=== PATIENT | female | born 1935 | race Caucasian/White ===

== ENCOUNTER 2018-02-13 19:17 | Inpatient (IN) | payer OTHER ==
[~2018-02-13] VITALS: Ht 152.4 cm; Wt 44.9 kg
--- OUTSIDE RECORDS SUMMARY | 2018-02-13 19:20 | XMS REPORT | Clinical Summary ---
Author Author [facility]ip [facility] Organization [facility] Address Unknown Phone Unavailable Care Team Providers Care Grease Worker Name Role Phone Asked, Pcp PCP Unavailable Allergies Active Allergy Reactions Severity Noted Date Comments Codeine Rash Low 05/30/2017 Current Medications Hospital, Clinic, or Ordered Dose Route Frequency Start End Date Status Other Facility Date Administered Medication ciprofloxacin-dexamethaso 4 drop RIGHT EAR BID 05/30/20 06/06/20 Ended ne (CIPRODEX) otic 17 17 suspension 4 dropIndications: Chronic diffuse otitis externa of both ears Active Problems Problem Noted Date Chronic diffuse otitis externa of both ears 05/30/2017 Encounters Date Type Specialty Care Team Description 05/30/2017 Office Visit Otolaryngology Eleazar Luciano MD Chronic diffuse otitis externa of both ears (Primary Dx) after 02/12/2017 Social History Tobacco Use Types Packs/Day Years Used Date Never Smoker Alcohol Use Drinks/Week oz/Week Comments No Sex Assigned at Date Recorded Not on file Last Filed Vital Signs Vital Sign Reading Time Taken Blood Pressure - - Pulse - - Temperature - - Respiratory Rate - - Oxygen Saturation - - Inhaled Oxygen - - Concentration Weight 43.5 kg (96 lb) 05/30/2017 10:06 AM CDT Height 152.4 cm (5') 05/30/2017 10:06 AM CDT Body Mass Index 18.75 05/30/2017 10:06 AM CDT Plan of Treatment Health Maintenance Due Date Last Done Comments ZOSTER VACCINE 1995 PNEUMOCOCCAL 2000 POLYSACCHARIDE VACCINE AGE 65 AND OVER PNEUMOCOCCAL-13 2000 INFLUENZA VACCINE 06/25/2017 Results Not on fileafter 02/12/2017 Insurance Payer Benefit Subscriber ID Type Phone Address Plan / Group TEXAN[employer]US TEXAN[employer]US xxxxxxxxx O [facility]
[2018-02-13 20:01] LABS: BASOPHILS % 0.5 % (0.0-1.0); EOSINOPHILS # (AUTO) 0.1 (0.0-0.4); EOSINOPHILS % 1.4 % (0.0-6.0); LYMPHOCYTES # (AUTO) 1.8 (1.0-3.2); LYMPHOCYTES % 29.5 % (18.0-39.1); MEAN CORPUSCULAR HEMOGLOBIN 17.2 pg (28-32); MEAN CORPUSCULAR HGB CONC 27.3 g/dL (31-35); MEAN CORPUSCULAR VOLUME 62.9 fL (81-99); MONOCYTES # (AUTO) 0.6 (0.2-0.8); MONOCYTES % 9.8 % (4.4-11.3); NEUTROPHILS # (AUTO) 3.6 (2.1-6.9); NEUTROPHILS % 58.5 % (38.7-80.0); PLATELET COUNT 436 x10e3/uL (140-360); RED BLOOD COUNT 3.26 x10e6/uL (3.6-5.1); RED CELL DISTRIBUTION WIDTH 20.6 % (11.7-14.4)
[2018-02-13 20:04] LABS: HEMATOCRIT 20.5 % (34.2-44.1); HEMOGLOBIN 5.6 g/dL (12.0-16.0)
[2018-02-13] MEDS ORDERED: PANTOPRAZOLE 40 MG 10ML VIAL IV STA (20:05)
[2018-02-13 20:07] LABS: INR 1.11; PARTIAL THROMBOPLASTIN TIME 27.2 seconds (23.8-35.5); PROTHROMBIN TIME 13.5 seconds (11.9-14.5)
[2018-02-13] MEDS ORDERED: SODIUM CHLORIDE 0.9% 250ML 250 ML IV ONE (20:15)
[2018-02-13 20:21] LABS: ALANINE AMINOTRANSFERASE 7 IU/L (0-55); ALBUMIN 3.4 g/dL (3.5-5.0); ALBUMIN/GLOBULIN RATIO 1.1 (0.8-2.0); ALKALINE PHOSPHATASE 64 IU/L (40-150); ANION GAP 12.1 mmol/L (8-16); BLOOD UREA NITROGEN 18 mg/dL (7-26); BUN/CREATININE RATIO 27 (6-25); CALCIUM 9.1 mg/dL (8.4-10.2); CARBON DIOXIDE 26 mmol/L (22-29); CHLORIDE 107 mmol/L (98-107); CREATINE KINASE 60 IU/L (29-168); CREATININE, SERUM 0.66 mg/dL (0.57-1.11); EST GLOMERULAR FILTRATION RATE > 60 ML/MIN (60-); GLUCOSE 118 mg/dL (74-118); POTASSIUM 4.1 mmol/L (3.5-5.1); SODIUM 141 mmol/L (136-145)
[2018-02-13 20:53] LABS: BILIRUBIN,URINE NEGATIVE (NEGATIVE); COLOR,URINE YELLOW (YELLOW); KETONES,URINE NEGATIVE (NEGATIVE); LEUKOCYTE ESTERASE ,URINE 2+ (NEGATIVE); NITRITE,URINE NEGATIVE (NEGATIVE); PROTEIN,URINE DIPSTICK NEGATIVE (NEGATIVE); URINE UROBILINOGEN 1 mg/dL (0.2 - 1)
[2018-02-13 20:56] LABS: CLARITY,URINE SL CLOUDY (CLEAR)
[2018-02-13 21:10] LABS: BACTERIA,URINE MODERATE /HPF; EPITHELIAL CELLS,URINE MANY /LPF
--- NOTE | 2018-02-13 22:00 | Diagnostic Imaging Report ---
EXAM: CHEST 2 VIEWS, PA and lateral INDICATION: Anemia, constipation COMPARISON: None FINDINGS: LINES/TUBES: None LUNGS: No consolidations or edema. Emphysematous changes. PLEURA: No effusions or pneumothorax. HEART AND MEDIASTINUM: Normal size and contour. BONES AND SOFT TISSUES: No acute findings. Surgical clips right upper quadrant of the abdomen. IMPRESSION: No acute thoracic abnormality. Signed by: Dr. Claritza Gatica M.D. on 02/13/2018 9:57 PM
--- NOTE | 2018-02-13 22:01 | Diagnostic Imaging Report ---
EXAM: ABDOMEN COMP INCL UPR or DECUB, supine and erect INDICATION: Anemia, constipation COMPARISON: None FINDINGS: LINES/TUBES: None BOWEL PATTERN: No evidence for obstruction. SOFT TISSUES: Surgical clips right upper quadrant of the abdomen. Surgical clips project over the pelvis. Phleboliths in the pelvis. LUNG BASES: Not included BONES: No acute findings. IMPRESSION: Moderate to large amount of retained stool. No evidence of obstruction. Signed by: Dr. Claritza Gatica M.D. on 02/13/2018 9:58 PM
[2018-02-13] MEDS: SODIUM CHLORIDE 0.9% 1000ML 1,000 ML IV SCH (22:43)
--- OUTSIDE RECORDS SUMMARY | 2018-02-13 23:04 | XMS REPORT | Clinical Summary ---
Author Author Sandip [facility] Organization [employer] Address Unknown Phone Unavailable Care Team Providers Care Stationary Plant Operators Name Role Phone Asked, Pcp PCP Unavailable [...] Plan / Group [employer] TEX[employer] xxxxxxxxx [facility]
--- OUTSIDE RECORDS SUMMARY | 2018-02-13 23:04 | XMS REPORT ---
[facility] Address Unknown Phone Unavailable Care Team Providers Care Dental Laboratory Technician Apprentice Name Role Phone HANNAH GALEAS Unavailable Unavailable Problems This patient has no known problems. Allergies, Adverse Reactions, Alerts This patient has no known allergies or adverse reactions. Medications This patient has no known medications. Results Test Description Test Time Test Comments Text Results Atomic Results Result Comments CHEST 2 VIEWS [place] [id number] [place] [address] Patient Name: ALBERT BUSTAMANTE MR #: [id number] : 1935 Age/Sex: 82/F Req #: [id number] Adm Physician: Ordered by: HANNAH GALEAS MD Report #: [id number] Location: ER Room/Bed: Procedure: [id number] DX/CHEST 2 VIEWS Exam Date: Exam Time: REPORT STATUS: Signed EXAM: CHEST 2 VIEWS, PA and lateral INDICATION: Anemia, constipation COMPARISON: None FINDINGS: LINES/TUBES: None LUNGS: No consolidations or edema. Emphysematous changes. PLEURA: No effusions or pneumothorax. HEART AND MEDIASTINUM: Normal size and contour. BONES AND SOFT TISSUES: No acute findings. Surgical clips right upper quadrant of the abdomen. IMPRESSION: No acute thoracic abnormality. Signed by: Dr. Tyrese Dougherty M.D. on 02/13/2018 9:57 PM Dictated By: TYRESE DOUGHERTY MD 56 COPY TO: HANNAH GALEAS MD ABDOMEN COMP INCL UPR or DECUB [place] [address] Patient Name: ALBERT BUSTAMANTE MR #: [id number] : 1935 Age/Sex: 82/F Req #: [id number] Adm Physician: Ordered by: HANNAH GALEAS MD Report #: [id number] Location: ER Room/Bed: Procedure: [id number] DX/ABDOMEN COMP INCL UPR or DECUB Exam Date: Exam Time: REPORT STATUS: Signed EXAM: ABDOMEN COMP INCL UPR or DECUB, supine and erect INDICATION: Anemia, constipation COMPARISON: None FINDINGS: LINES/TUBES: None BOWEL PATTERN: No evidence for obstruction. SOFT TISSUES: Surgical clips right upper quadrant of the abdomen. Surgical clips project over the pelvis. Phleboliths in the pelvis. LUNG BASES: Not included BONES: No acute findings. IMPRESSION: Moderate to large amount of retained stool. No evidence of obstruction. Signed by: Dr. Tyrese Dougherty M.D. on 2017 9:58 PM Dictated By: TYRESE DOUGHERTY MD 57 Transcribed By: HELGA on 02/13/182157 COPY TO: HANNAH GALEAS MD
[2018-02-14] VITALS (9 sets, daily range): BP systolic 133–163; BP diastolic 61–71
[2018-02-14] MEDS ORDERED: PLAVIX75 MG PO (00:49)
[2018-02-14] MEDS ORDERED: ASPIRIN81 MG PO (00:49)
[2018-02-14] MEDS ORDERED: SODIUM CHLORIDE 0.9% 250ML 250 ML ONE ×3 (01:04→09:17)
[2018-02-14] MEDS: ACETAMINOPHEN 325 MG TAB PO PRN (03:06)
[2018-02-14] MEDS: FUROSEMIDE INJ 10 MG/ML 2 ML VIAL IV PRN ×3 (04:58→13:30)
[2018-02-14] MEDS ORDERED: PANTOPRAZOLE 40 MG 10ML VIAL IV SCH (09:00)
[2018-02-14] MEDS ORDERED: PANTOPRAZOLE SO40 MG PO (11:10)
[2018-02-14] MEDS ORDERED: SIMVASTATIN20 MG PO (11:10)
[2018-02-14] MEDS ORDERED: ATENOLOL50 MG PO (11:10)
[2018-02-14] MEDS ORDERED: MAGNESIUM HYDROXIDE 30 ML UDC PO PRN (12:15)
[2018-02-14 12:47] LABS: THYROID STIMULATING HORMONE 1.13 uIU/mL (0.350-4.940)
[2018-02-14 13:00] LABS: FOLATE 16.7 ng/mL (7.0-15.4)
[2018-02-14] MEDS: SENNOSIDES 8.6 MG TAB PO SCH ×2 (13:00→20:24)
--- NOTE | 2018-02-14 13:09 | History and Physical ---
PRIMARY CARE PHYSICIAN: Dr. Fred Phelan. CHIEF COMPLAINT: Severe anemia, increasing shortness of breath. HISTORY OF PRESENT ILLNESS: Patient is an 82-year-old female with history of anemia but no blood transfusion previously. She had a colonoscopy approximately 4 years ago with polyps. The procedure was done by Dr. David Stafford. No previous history of EGD. Patient also had a coronary stent placement in 1998, and she is on Plavix. Otherwise she is stable. She is getting 30 units of blood transfusion at this time. The patient will be pending for further evaluation and treatment. PAST MEDICAL HISTORY: Chronic anemia. Coronary artery disease with previous stent placement in 1998. Hypertension. Hyperlipidemia. Reflux history. PAST SURGICAL HISTORY: Coronary stent. Cholecystectomy. Complete abdominal hysterectomy. SOCIAL HISTORY: Patient does not smoke or use alcohol. She lives with her son. ALLERGIES: CODEINE. MEDICATIONS: Plavix, Protonix, simvastatin, atenolol. PHYSICAL EXAMINATION: VITAL SIGNS: Temperature is 98. Blood pressure 147/67. Pulse rate 75. Respirations 18. GENERAL: The patient is not in acute distress. She is awake. HEENT: Normocephalic. Sclerae anicteric. NECK: Supple grossly. PULMONARY: Clear. CARDIOVASCULAR: Regular rate and rhythm. ABDOMEN: Soft. No distention. EXTREMITIES: No gross cyanosis or edema. NEUROLOGIC: There is no gross focal deficit. LABORATORY: Sodium is 141, potassium 4.1, chloride 107, bicarb 26, BUN 18, creatinine 0.7, glucose 118. WBC 6.2, hemoglobin 5.6, hematocrit 20.5, platelets are 436. INR is 1.1. PT is 13.5. PTT 27.2. AST is 14, ALT 7, total bilirubin is 0.4, alkaline phosphatase 64. IMPRESSION: 1. Acute on chronic anemia, most likely. 2. Constipation. 3. Blood transfusion. 4. History of coronary disease with stent placement back in 1998. PLAN: Blood transfusion is already initiated and is on the 3rd unit. Consultation with Dr. David Stafford. Iron profile, B12, folic acid, fecal for occult blood in the stool. Management of constipation. If no procedure today, the patient may initiate on diet. The patient will need endoscopy done. Job#: [id number] EV
[2018-02-14] MEDS ORDERED: PEG (High)/E-LYTE SOLN 4,000 ML BTL PO ONE (15:30)
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
[2018-02-14 18:15] LABS: BASOPHILS # (AUTO) 0.1 (0.0-0.1); BASOPHILS % 0.7 % (0.0-1.0); EOSINOPHILS # (AUTO) 0.1 (0.0-0.4); EOSINOPHILS % 1.2 % (0.0-6.0); HEMATOCRIT 41.9 % (34.2-44.1); HEMOGLOBIN 13.7 g/dL (12.0-16.0); LYMPHOCYTES # (AUTO) 1.3 (1.0-3.2); LYMPHOCYTES % 17.8 % (18.0-39.1); MEAN CORPUSCULAR HEMOGLOBIN 23.7 pg (28-32); MEAN CORPUSCULAR HGB CONC 32.7 g/dL (31-35); MEAN CORPUSCULAR VOLUME 72.5 fL (81-99); MONOCYTES # (AUTO) 0.6 (0.2-0.8); MONOCYTES % 7.8 % (4.4-11.3); NEUTROPHILS # (AUTO) 5.4 (2.1-6.9); NEUTROPHILS % 72.2 % (38.7-80.0); PLATELET COUNT 390 x10e3/uL (140-360); RED BLOOD COUNT 5.78 x10e6/uL (3.6-5.1); RED CELL DISTRIBUTION WIDTH 26.8 % (11.7-14.4)
[2018-02-14 18:30] LABS: ALANINE AMINOTRANSFERASE 10 IU/L (0-55); ALBUMIN 3.9 g/dL (3.5-5.0); ALBUMIN/GLOBULIN RATIO 1.1 (0.8-2.0); ALKALINE PHOSPHATASE 72 IU/L (40-150); ANION GAP 15.4 mmol/L (8-16); BLOOD UREA NITROGEN 12 mg/dL (7-26); BUN/CREATININE RATIO 16 (6-25); CALCIUM 9.7 mg/dL (8.4-10.2); CARBON DIOXIDE 31 mmol/L (22-29); CHLORIDE 95 mmol/L (98-107); CREATININE, SERUM 0.73 mg/dL (0.57-1.11); EST GLOMERULAR FILTRATION RATE > 60 ML/MIN (60-); GLUCOSE 113 mg/dL (74-118); POTASSIUM 3.4 mmol/L (3.5-5.1); SODIUM 138 mmol/L (136-145)
[2018-02-14] MEDS: SODIUM CHLORIDE 0.9% 1000ML 1,000 ML IV SCH (18:43)
[2018-02-14] MEDS: SIMVASTATIN 20 MG TAB PO SCH (20:24)
[2018-02-15] VITALS (8 sets, daily range): BP systolic 122–182; BP diastolic 56–81
[2018-02-15 06:49] LABS: BASOPHILS % 0.6 % (0.0-1.0); EOSINOPHILS # (AUTO) 0.2 (0.0-0.4); EOSINOPHILS % 2.3 % (0.0-6.0); HEMATOCRIT 40.6 % (34.2-44.1); HEMOGLOBIN 13.1 g/dL (12.0-16.0); LYMPHOCYTES # (AUTO) 1.4 (1.0-3.2); LYMPHOCYTES % 20.9 % (18.0-39.1); MEAN CORPUSCULAR HEMOGLOBIN 23.3 pg (28-32); MEAN CORPUSCULAR HGB CONC 32.3 g/dL (31-35); MEAN CORPUSCULAR VOLUME 72.2 fL (81-99); MONOCYTES # (AUTO) 0.8 (0.2-0.8); MONOCYTES % 11.3 % (4.4-11.3); NEUTROPHILS # (AUTO) 4.4 (2.1-6.9); NEUTROPHILS % 64.5 % (38.7-80.0); PLATELET COUNT 339 x10e3/uL (140-360); RED BLOOD COUNT 5.62 x10e6/uL (3.6-5.1); RED CELL DISTRIBUTION WIDTH 27.1 % (11.7-14.4)
[2018-02-15 07:15] LABS: ANION GAP 12.6 mmol/L (8-16); BLOOD UREA NITROGEN 15 mg/dL (7-26); BUN/CREATININE RATIO 22 (6-25); CALCIUM 9.4 mg/dL (8.4-10.2); CARBON DIOXIDE 28 mmol/L (22-29); CHLORIDE 99 mmol/L (98-107); CREATININE, SERUM 0.69 mg/dL (0.57-1.11); EST GLOMERULAR FILTRATION RATE > 60 ML/MIN (60-); GLUCOSE 104 mg/dL (74-118); POTASSIUM 3.6 mmol/L (3.5-5.1); SODIUM 136 mmol/L (136-145)
[2018-02-15] MEDS: PANTOPRAZOLE SOD 40 MG TABEC PO SCH (08:18)
[2018-02-15] MEDS: ATENOLOL 50 MG TAB PO SCH (08:18)
[2018-02-15 10:21] LABS: ANISOCYTOSIS SLIG; ELLIPTOCYTE, RBC SLIGHT; POIKILOCYTOSIS MODERATE; STOMATOCYTES SLIGHT
[2018-02-15 10:22] LABS: PLATELET ESTIMATE ADEQUATE; PLATELET MORPHOLOGY COMMENT NORMAL; RBC MORPHOLOGY COMMENT ABNORMAL
[2018-02-15] MEDS ORDERED: PEG (High)/E-LYTE SOLN 4,000 ML BTL PO ONE ×2 (11:00→17:00)
[2018-02-15] MEDS: SODIUM CHLORIDE 0.9% 1000ML 1,000 ML IV SCH (14:43)
[2018-02-15] MEDS: SENNOSIDES 8.6 MG TAB PO SCH (20:27)
[2018-02-15] MEDS: SIMVASTATIN 20 MG TAB PO SCH (20:28)
--- NOTE | 2018-02-15 23:15 | Progress Note ---
DATE: February 15, 2018 SUBJECTIVE: Patient is reporting no abdominal pain. She is tolerating clear liquids. REVIEW OF SYSTEMS: GENERAL: No fever or chills. CVS: No chest pain or palpitation. RESPIRATORY: No cough or expectoration. MEDICATIONS: Reviewed JAN. PHYSICAL EXAMINATION: VITAL SIGNS: Temperature 96.4, pulse 58, respiration 18, blood pressure 136/63 to 157/75, oxygen saturation 100% on room air. GENERAL: Elderly frail lady, thin body habitus, low muscle mass. HEENT: Mucous membranes moist. Anicteric sclerae. CVS: S1 and S2 regular. LUNGS: Bilaterally grossly clear. ABDOMEN: Thin, nondistended, nontender. No palpable mass or hernia. Positive bowel sounds. EXTREMITIES: Warm. No leg edema. LABS: Hemoglobin 13.1 from 13.7. WBC 6.88, hematocrit 40.6, platelet count 339,000. Electrolytes normal. Abdominal x-ray on February 13 IMPRESSION: Symptomatic microcytic anemia. Stool is heme occult positive. PLAN: Bowel prep tonight. Continue clear liquid diet. Esophagogastroduodenoscopy and colonoscopy tomorrow. Job#: [id number] DR MATA
[2018-02-16] VITALS (9 sets, daily range): BP systolic 135–158; BP diastolic 59–72
[2018-02-16] MEDS: ATENOLOL 50 MG TAB PO SCH ×2 (09:00→15:46)
[2018-02-16] MEDS: PANTOPRAZOLE SOD 40 MG TABEC PO SCH ×2 (09:00→15:46)
[2018-02-16] MEDS ORDERED: DIATRIZOATE MEGL/DIATRIZOA SOD 30 ML BTL PO ONE (10:35)
[2018-02-16] MEDS: SODIUM CHLORIDE 0.9% 1000ML 1,000 ML IV SCH (10:43)
--- NOTE | 2018-02-16 14:02 | Diagnostic Imaging Report ---
ADDENDUM #1 Addendum: Questionable thickening of the sigmoid junction. Proctitis not excluded. Direct visualization could be obtained as indicated. Signed by: Dr. Harjeet Patino MD on 02/16/2018 2:23 PM ORIGINAL REPORT EXAM: CT Abdomen and Pelvis WITH contrast INDICATION: EGD same day. Abnormal findings. Rule out metastasis. COMPARISON: None. TECHNIQUE: Abdomen and Pelvis was scanned utilizing a multidetector helical scanner after administration of IV contrast. Coronal and sagittal reformations were obtained. IV CONTRAST: 100 mL Isovue-370 COMPLICATIONS: None RADIATION DOSE: Total DLP:155 mGy*cm Estimated effective dose: (DLP x 0.015 x size factor) mSv CTDIvol has been reviewed. It is below the limits set by the Radiation Protocol Committee (RPC). FINDINGS: Abdomen: Lung Bases: Atelectasis present lung bases. Solid Organs: 9 mm cyst anterior left hepatic lobe. Focal fat attenuation along the falciform ligament. Cholecystectomy clips are present. There is a 15 mm nodule in the left adrenal gland with indeterminate Hounsfield units of 71. 20 mm right adrenal lesion present with indeterminate Hounsfield units of 81. Hypodensity right kidney statistically cyst, but too small to definitively characterize. Pancreas unremarkable. Upper GI Tract: Gastric decompression limits evaluation. No small bowel obstructive changes. Vascularity: Moderate aortoiliac vascular calcifications with no aneurysm. Lymph Nodes: No suspicious mesenteric or aortocaval adenopathy. Other: None. Pelvis: Bladder: Unremarkable. Other: Uterus absent. Colon: Areas of decompression limits evaluation. Questionable wall thickening in the rectal junction. Bones: No acute findings. IMPRESSION: 1. Bilateral indeterminate adrenal lesions. Adrenal mass protocol CT or MRI recommended. 2. If concern is present for metastatic disease in the chest, dedicated CT chest to be recommended. 3. Colonic evaluation limited by decompression. Signed by: Dr. Harjeet Patino MD on 02/16/2018 1:58 PM
[2018-02-16] MEDS ORDERED: SODIUM CHLORIDE 0.9% 50ML 50 ML ONE (14:21)
[2018-02-16] MEDS ORDERED: IOPAMIDOL 370 MG/ML 200 ML INFUS..BTL INJ ONE (14:23)
[2018-02-16] MEDS ORDERED: LIDOCAINE HCL 2% LOCAL INJ 5 ML SDV VIAL INJ ONE (14:39)
[2018-02-16] MEDS ORDERED: PROPOFOL IV EMULSION 10 MG/ML 20 ML VIAL ONE (14:39)
[2018-02-16] MEDS: SIMVASTATIN 20 MG TAB PO SCH (20:53)
[2018-02-16] MEDS: SENNOSIDES 8.6 MG TAB PO SCH (20:53)
[2018-02-17] VITALS (29 sets, daily range): BP systolic 117–179; BP diastolic 55–87
--- NOTE | 2018-02-17 00:17 | Consultation ---
DATE OF CONSULTATION: February 16, 2018 CHIEF COMPLAINT: Colonic tumor. HISTORY OF PRESENT ILLNESS: The patient is 82-year-old female admitted for history of significant anemia and chronic constipation. The patient was found on colonoscopy to have a tumor near obstructing in the proximal transverse colon. She denies history of melena or vomiting. PAST MEDICAL HISTORY: Significant for coronary artery disease, status post stent placement many years ago. She also has hypertension, GERD, hyperlipidemia, anxiety, and glaucoma. SURGICAL HISTORY: Positive for hysterectomy, cholecystectomy, and coronary artery stenting. ALLERGIES: PATIENT IS ALLERGIC TO CODEINE. SOCIAL HABITS: No history of smoking or alcohol use. REVIEW OF SYSTEMS: No current chest pain or shortness of breath or cough. PHYSICAL EXAMINATION: VITAL SIGNS: Stable. She is afebrile. GENERAL: Patient is awake, alert, in no apparent distress. HEENT: Sclerae nonicteric. NECK: Supple. LUNGS: Clear. HEART: Regular rate and rhythm. No murmurs. ABDOMEN: Soft. There is no focal tenderness or mass. EXTREMITIES: Without cyanosis or edema. LABORATORY DATA: White cell count is 6.8, hemoglobin of 13. Creatinine of 0.6. Abdominal x-ray showed constipation. ASSESSMENT: Large colonic tumor with severe anemia. Patient has been adequately resuscitated. PLAN: Laparoscopic-assisted right colectomy under anesthesia. Attendant risks discussed with patient and family. Thank you. Job#: [id number]
[2018-02-17 07:10] LABS: BASOPHILS # (AUTO) 0.1 (0.0-0.1); BASOPHILS % 0.8 % (0.0-1.0); EOSINOPHILS # (AUTO) 0.1 (0.0-0.4); EOSINOPHILS % 1.3 % (0.0-6.0); HEMATOCRIT 38.3 % (34.2-44.1); HEMOGLOBIN 12.1 g/dL (12.0-16.0); LYMPHOCYTES # (AUTO) 1.4 (1.0-3.2); LYMPHOCYTES % 18.6 % (18.0-39.1); MEAN CORPUSCULAR HEMOGLOBIN 23.4 pg (28-32); MEAN CORPUSCULAR HGB CONC 31.6 g/dL (31-35); MEAN CORPUSCULAR VOLUME 74.2 fL (81-99); MONOCYTES # (AUTO) 0.6 (0.2-0.8); MONOCYTES % 7.4 % (4.4-11.3); NEUTROPHILS # (AUTO) 5.5 (2.1-6.9); NEUTROPHILS % 70.6 % (38.7-80.0); PLATELET COUNT 295 x10e3/uL (140-360); RED BLOOD COUNT 5.16 x10e6/uL (3.6-5.1); RED CELL DISTRIBUTION WIDTH 27.9 % (11.7-14.4)
[2018-02-17 07:24] LABS: INR 1.14; PARTIAL THROMBOPLASTIN TIME 28.3 seconds (23.8-35.5); PROTHROMBIN TIME 13.7 seconds (11.9-14.5)
[2018-02-17 07:47] LABS: ALANINE AMINOTRANSFERASE 8 IU/L (0-55); ALBUMIN 2.9 g/dL (3.5-5.0); ALBUMIN/GLOBULIN RATIO 1.1 (0.8-2.0); ALKALINE PHOSPHATASE 62 IU/L (40-150); ANION GAP 11.8 mmol/L (8-16); BLOOD UREA NITROGEN 8 mg/dL (7-26); BUN/CREATININE RATIO 13 (6-25); CALCIUM 8.7 mg/dL (8.4-10.2); CARBON DIOXIDE 25 mmol/L (22-29); CHLORIDE 108 mmol/L (98-107); CREATININE, SERUM 0.63 mg/dL (0.57-1.11); EST GLOMERULAR FILTRATION RATE > 60 ML/MIN (60-); GLUCOSE 87 mg/dL (74-118); POTASSIUM 3.8 mmol/L (3.5-5.1); SODIUM 141 mmol/L (136-145)
[2018-02-17 08:37] LABS: HYPOCHROMASIA SLIGHT; PLATELET ESTIMATE ADEQUATE; PLATELET MORPHOLOGY COMMENT FEW LARGE; RBC MORPHOLOGY COMMENT ABNORMAL
[2018-02-17 08:38] LABS: ANISOCYTOSIS SLIG; POIKILOCYTOSIS SLIGHT
[2018-02-17] MEDS: ATENOLOL 50 MG TAB PO SCH (08:40)
[2018-02-17] MEDS: PANTOPRAZOLE SOD 40 MG TABEC PO SCH (08:44)
[2018-02-17] MEDS ORDERED: BUPIVACAINE 0.5%/EPI 30 ML SDV INJ ONE (11:44)
[2018-02-17] MEDS ORDERED: ACETAMINOPHEN 1000 MG/100 ML 100 ML IV ONE (12:27)
[2018-02-17] MEDS ORDERED: MORPHINE SULFATE 4 MG/ML SYR IV PRN (13:15)
--- NOTE | 2018-02-17 14:17 | Operative Report ---
DATE OF PROCEDURE: February 17, 2018 PREOPERATIVE DIAGNOSIS: Right colonic tumor. POSTOPERATIVE DIAGNOSIS: Right transverse colonic tumor. OPERATIVE PROCEDURE: Right colectomy. ANESTHESIA: General. INDICATIONS: The patient is an 82-year-old female with history of anemia. Colonoscopy revealed a tumor in the proximal transverse colon. CT scan has shown no evidence of distal metastases. Patient has consented for right colectomy under anesthesia with all attendant risks discussed. DESCRIPTION OF PROCEDURE: Patient was brought to the OR intubated. Abdomen was prepped with alcohol and draped in a sterile fashion. Upper midline incision was made extending below the umbilicus. The linea alba was entered. Adhesions from prior surgery were noted, and these were taken down with the Bovie. The right proximal transverse colon tumor was identified by the tattoo as well as palpation. We proceeded to mobilize the right colon by dividing the white line of Toldt and opened the gastrocolic ligament partially. The terminal ileum was also mobilized from the retroperitoneal attachment. We then proceeded to use a BRY stapler and divided the transverse colon just proximal to its mid point. Terminal ileum was transected just adjacent to the ileocecal valve. The corresponding mesentery to the right colon was then taken near the roots of the mesentery, suture ligating the vascular mesentery with 2-0 silk ligature. The ileocolic vessel was similarly treated. Some enlarged nodes were noted in the mesentery, which was included in the specimen. The operative field was irrigated. We then proceeded to stapled anastomosis using an Endo-BRY stapler white load and TL60 stapler. The mesenteric defect was also closed with running 3-0 silk stitch. Operative field was irrigated and hemostasis achieved. Abdomen was closed by approximating the linea alba with running #0 PDS and skin with vadim. Patient was extubated and transported to the recovery room in guarded condition. Estimated blood loss 50 mL. Job#: [id number]
--- NOTE | 2018-02-17 16:04 | Consultation ---
DATE OF CONSULTATION: February 17, 2018 CHIEF COMPLAINT: The patient is an 82-year-old with surgery for transection of colon tumor. HISTORY OF PRESENT ILLNESS: The patient is an 82-year-old who was noted to have a tumor obstructing the proximal portion of the transverse colon. The patient subsequently underwent surgery today for resection of the tumor. In the post anesthesia care unit, the patient was noted to have sinus bradycardia. The patient is already extubated with no chest pain and minimal shortness of breath. PAST MEDICAL HISTORY: History is significant for: 1. Coronary artery disease. 2. Previous stent placement in the coronary artery. 3. Hypertension. 4. Gastroesophageal reflux. HOME MEDICATIONS: Atenolol, Plavix, simvastatin, Protonix. SOCIAL HISTORY: The patient does not drink and does not smoke. FAMILY HISTORY: No known family history of coronary artery disease. PHYSICAL EXAMINATION GENERAL: The patient is an elderly female in no obvious distress. VITAL SIGNS: Temperature 97.6, pulse 65, blood pressure 117/56. HEENT: The patient's cranium was normocephalic, atraumatic. Extraocular muscles were intact. Sclerae anicteric. Pupils equal, round and reactive to light. There is no pallor or cyanosis of the oral mucosa. There is no erythema or edema of the throat. NECK: Supple. There is no jugular venous distention. There are no carotid bruits. CHEST: Clear to auscultation and percussion. CARDIAC: Demonstrates a normal S1 and S2 with a short 2/6 systolic murmur. ABDOMEN: Good bowel sounds. No tenderness, no masses. The patient did have recent surgery. EXTREMITIES: There is no clubbing and no cyanosis and no edema. NEUROLOGIC: The patient is moving all of her extremities. The patient's EKG demonstrated sinus bradycardia with no acute changes. IMPRESSION: The patient is an 82-year-old with recent transection of a tumor in the transverse colon with noted some sinus bradycardia. The patient has had no evidence of active cardiac ischemia at this time with no chest pain and no shortness of breath. The patient will need to be monitored on telemetry. Job#: [id number] cc:RADHA DELGADO MD
[2018-02-17] MEDS: MORPHINE SULFATE 2 MG/ML SYR IV PRN (17:25)
[2018-02-17] MEDS: SODIUM CHLORIDE 0.9% 1000ML 1,000 ML IV SCH ×2 (18:00→19:52)
[2018-02-17] MEDS ORDERED: ROCURONIUM BROMIDE 10 MG/ML 5ML VIAL ONE (18:10)
[2018-02-17] MEDS ORDERED: CEFOXITIN SOD 1 GM VIAL ONE (18:10)
[2018-02-17] MEDS ORDERED: DEXAMETHASONE SOD PHOS INJ 4 MG/ML VIAL ONE (18:10)
[2018-02-17] MEDS ORDERED: ONDANSETRON HCL INJ 2 MG/ML VIAL ONE (18:10)
[2018-02-17] MEDS ORDERED: SEVOFLURANE INHAL SOLN 250 ML PEN BTL ONE (18:10)
[2018-02-17] MEDS ORDERED: PROPOFOL IV EMULSION 10 MG/ML 20 ML VIAL ONE (18:10)
[2018-02-17] MEDS ORDERED: LIDOCAINE HCL 2% LOCAL INJ 5 ML SDV VIAL INJ ONE ×2 (18:10)
[2018-02-17] MEDS ORDERED: PROPOFOL IV EMULSION 10 MG/ML 50 ML VIAL ONE (18:10)
[2018-02-17] MEDS ORDERED: FENTANYL CITRATE/PF 100MCG/2 ML INJ ONE (18:22)
[2018-02-17] MEDS ORDERED: MORPHINE SULFATE INJ 10 MG/ML ONE (18:22)
[2018-02-17] MEDS: SENNOSIDES 8.6 MG TAB PO SCH (21:18)
[2018-02-18] VITALS (46 sets, daily range): BP systolic 91–135; BP diastolic 42–66
[2018-02-18] MEDS: MORPHINE SULFATE 2 MG/ML SYR IV PRN ×4 (01:03→21:19)
[2018-02-18] MEDS: SODIUM CHLORIDE 0.9% 1000ML 1,000 ML IV SCH ×2 (03:59→14:55)
[2018-02-18 06:16] LABS: BASOPHILS % 0.2 % (0.0-1.0); EOSINOPHILS % 0.1 % (0.0-6.0); HEMATOCRIT 38.6 % (34.2-44.1); HEMOGLOBIN 11.7 g/dL (12.0-16.0); MEAN CORPUSCULAR HEMOGLOBIN 23.5 pg (28-32); MEAN CORPUSCULAR HGB CONC 30.3 g/dL (31-35); MEAN CORPUSCULAR VOLUME 77.5 fL (81-99); MONOCYTES # (AUTO) 0.8 (0.2-0.8); MONOCYTES % 4.9 % (4.4-11.3); NEUTROPHILS # (AUTO) 14.4 (2.1-6.9); NEUTROPHILS % 88.6 % (38.7-80.0); PLATELET COUNT 290 x10e3/uL (140-360); RED BLOOD COUNT 4.98 x10e6/uL (3.6-5.1); RED CELL DISTRIBUTION WIDTH 28.2 % (11.7-14.4)
[2018-02-18 06:43] LABS: ANION GAP 18.7 mmol/L (8-16); BLOOD UREA NITROGEN 11 mg/dL (7-26); BUN/CREATININE RATIO 18 (6-25); CALCIUM 8.3 mg/dL (8.4-10.2); CARBON DIOXIDE 15 mmol/L (22-29); CHLORIDE 111 mmol/L (98-107); CREATININE, SERUM 0.62 mg/dL (0.57-1.11); EST GLOMERULAR FILTRATION RATE > 60 ML/MIN (60-); POTASSIUM 3.7 mmol/L (3.5-5.1); SODIUM 141 mmol/L (136-145)
[2018-02-18 06:49] LABS: GLUCOSE 54 mg/dL (74-118)
[2018-02-18 07:35] LABS: ANISOCYTOSIS SLIGHT; HYPOCHROMASIA SLIGHT; PLATELET ESTIMATE ADEQUATE; PLATELET MORPHOLOGY COMMENT NORMAL; RBC MORPHOLOGY COMMENT ABNORMAL
[2018-02-18] MEDS: ATENOLOL 50 MG TAB PO SCH (08:30)
[2018-02-18] MEDS: PANTOPRAZOLE SOD 40 MG TABEC PO SCH (11:26)
--- NOTE | 2018-02-18 19:50 | Progress Note ---
DATE: February 18, 2018 SUBJECTIVE: The patient reports mild incisional pain. She underwent laparoscopic cholecystectomy on Saturday. She has been allowed clear liquids which she is tolerating very well. She is passing flatus. She has not had any bowel movement. REVIEW OF SYSTEMS: GENERAL: No fever or chills. CVS: No chest pain or palpitations. RESPIRATORY: No cough or expectoration. MEDICATIONS: Reviewed as per JAN. OBJECTIVE VITAL SIGNS: Temperature 99.1, pulse 80, respirations 19, blood pressure 135/66, oxygen saturation 96% on room air. GENERAL: Frail, thin body habitus, low muscle mass. Not in any acute distress. HEENT: Moist mucous membranes. CVS: S1 and S2 regular. LUNGS: Bilaterally grossly clear. ABDOMEN: Soft. Surgical dressing, incisional tenderness. No rebound, rigidity or guarding, positive bowel sounds. EXTREMITIES: Warm. No leg edema. LABORATORY DATA: WBC has gone up to 16.29 from 7.73. Hemoglobin 11.7, hematocrit 38.6. MCV 77.5 and platelet count 290,000. Sodium 141, potassium 3.7, chloride 111, bicarb 15, BUN 11, creatinine 0.62. Stool occult blood heme positive. IMPRESSION: Right colon cancer, status post laparoscopic hemicolectomy, postoperative day #1. Surgical pathology as well as colon mass biopsy performed on colonoscopy still pending. PLAN: Postop care as per surgery. CT scan with IV contrast revealed no distant metastasis, indeterminate adrenal lesions. Recommend oncology consult as well. Will wait for biopsy results. Job#: [id number]
[2018-02-18] MEDS: NIFEDIPINE CR 30 MG TAB PO SCH (20:30)
[2018-02-18] MEDS: SENNOSIDES 8.6 MG TAB PO SCH (20:30)
[2018-02-19] MEDS: SODIUM CHLORIDE 0.9% 1000ML 1,000 ML IV SCH ×2 (01:52→09:38)
[2018-02-19] MEDS: ACETAMINOPHEN 325 MG TAB PO PRN (02:53)
[2018-02-19] MEDS: MORPHINE SULFATE 2 MG/ML SYR IV PRN ×3 (04:00→22:50)
[2018-02-19] MEDS: ONDANSETRON HCL INJ 2 MG/ML VIAL IV PRN (04:00)
[2018-02-19 08:00] VITALS: BP 105/53
[2018-02-19 08:01] VITALS: BP 105/53
[2018-02-19] MEDS: PANTOPRAZOLE SOD 40 MG TABEC PO SCH (09:00)
[2018-02-19] MEDS: NIFEDIPINE CR 30 MG TAB PO SCH ×2 (09:00→17:00)
[2018-02-19] MEDS: ATENOLOL 50 MG TAB PO SCH (09:00)
[2018-02-19 11:44] VITALS: BP 104/52
[2018-02-19 16:05] VITALS: BP 113/60
[2018-02-19] MEDS: SENNOSIDES 8.6 MG TAB PO SCH (20:20)
--- NOTE | 2018-02-19 20:30 | Progress Note ---
DATE: February 19, 2018 SUBJECTIVE: The patient reports mild incisional pain. She is tolerating liquids. She is asking when she can eat solid food. She is passing flatus. She has not had any bowel movement. REVIEW OF SYSTEMS: GENERAL: No fever or chills. CVS: No chest pain or palpitations. RESPIRATORY: No cough or expectoration. MEDICATIONS: As per MAR, reviewed. OBJECTIVE VITAL SIGNS: Temperature 98.4, pulse 75, respirations 19, blood pressure 113/60, oxygen saturation 98% on room air. GENERAL: Not in any acute distress and sitting comfortably on the bedside couch. Thin body habitus with low muscle mass. HEENT: Moist mucous membranes. Anicteric sclerae. CVS: S1 and S2 regular. LUNGS: Bilaterally grossly clear. ABDOMEN: Soft. Nondistended. Incisional tenderness on deep palpation without rebound, rigidity or guarding. Positive bowel sounds. EXTREMITIES: Warm. No leg edema. LABORATORY DATA: None done today. 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 Gastric biopsy was negative for any H. pylori infection. PLAN: Postop care for postop surgery. Advancement of the diet to solid foot, also as per surgery. Will wait for surgical pathology. Recommend oncology should also be on board. This I had discussed with Dr. Santos. Job#: [id number]
[2018-02-19 21:05] VITALS: BP 171/74
[2018-02-19] MEDS ORDERED: SODIUM CHLORIDE 0.9% 50ML 50 ML ONE (22:39)
[2018-02-19] MEDS ORDERED: IOPAMIDOL 370 MG/ML 200 ML INFUS..BTL INJ ONE (22:39)
[2018-02-20] VITALS (8 sets, daily range): BP systolic 101–143; BP diastolic 62–70
--- NOTE | 2018-02-20 00:50 | Diagnostic Imaging Report ---
EXAM: CT CHEST W DATE: 02/19/2018 8:57 PM INDICATION: Metastasis workup, recent removal tumor in transverse colon, POD 1 COMPARISON: None TECHNIQUE: Multidetector CT scanning of the chest was performed. Coronal and sagittal multiplanar reformations were obtained. IV Contrast: 100 ml Isovue 370/300 FINDINGS: LUNGS AND PLEURA: There are small bilateral pleural effusions with associated lower lobe and scattered lingular and right middle lobe atelectasis. There is an irregular 3.1 cm opacity in the posterior right upper lobe with adjacent small nodules. Nonspecific 4 mm right upper and middle lobe nodules (series 3 image 16, 60) HEART, MEDIASTINUM, VESSELS: Bilateral thyroid nodules, largest 2.4 cm on the left. Mild cardiomegaly with coronary artery and aortic atherosclerotic disease. No suspicious adenopathy. UPPER ABDOMEN: Pneumoperitoneum and mild to moderate visualized free fluid, incompletely assessed, status post recent surgery. Cholecystectomy, right renal cyst, and bilateral adrenal nodules again noted. Stable 9 mm left liver cyst. A 9 mm segment 3 low-density liver lesion (image 102) is more conspicuous than on prior, which was degraded by motion in this region. Probable right flash fill hemangioma (image 99). MUSCULOSKELETAL: No suspicious findings. IMPRESSION: 1. Small bilateral effusions with scattered atelectasis. 2. Irregular 3.1 cm right upper lobe opacity and adjacent tiny nodules, most likely infectious. Attention on follow-up. 3. Two nonspecific 4 mm right upper and middle lobe nodules. 4. Left liver subcentimeter low density lesion most likely a small metastasis. This is distinct from the left liver cyst. Signed by: Dr Sarah Guaman MD on 02/20/2018 12:46 AM
[2018-02-20 05:59] LABS: BASOPHILS % 0.6 % (0.0-1.0); EOSINOPHILS # (AUTO) 0.1 (0.0-0.4); EOSINOPHILS % 1.8 % (0.0-6.0); HEMOGLOBIN 13.7 g/dL (12.0-16.0); LYMPHOCYTES # (AUTO) 0.7 (1.0-3.2); MEAN CORPUSCULAR HEMOGLOBIN 23.4 pg (28-32); MEAN CORPUSCULAR HGB CONC 31.1 g/dL (31-35); MEAN CORPUSCULAR VOLUME 75.2 fL (81-99); MONOCYTES # (AUTO) 0.5 (0.2-0.8); MONOCYTES % 6.6 % (4.4-11.3); NEUTROPHILS # (AUTO) 5.5 (2.1-6.9); NEUTROPHILS % 80.6 % (38.7-80.0); PLATELET COUNT 303 x10e3/uL (140-360); RED BLOOD COUNT 5.85 x10e6/uL (3.6-5.1); RED CELL DISTRIBUTION WIDTH 29.1 % (11.7-14.4)
[2018-02-20 06:25] LABS: BLOOD UREA NITROGEN 12 mg/dL (7-26); BUN/CREATININE RATIO 20 (6-25); CALCIUM 8.8 mg/dL (8.4-10.2); CARBON DIOXIDE 20 mmol/L (22-29); CHLORIDE 108 mmol/L (98-107); CREATININE, SERUM 0.61 mg/dL (0.57-1.11); EST GLOMERULAR FILTRATION RATE > 60 ML/MIN (60-); GLUCOSE 155 mg/dL (74-118); SODIUM 136 mmol/L (136-145)
[2018-02-20 08:16] LABS: ANISOCYTOSIS MODE; PLATELET ESTIMATE ADEQUATE; PLATELET MORPHOLOGY COMMENT FEW GIANT; POIKILOCYTOSIS SLIGHT; RBC MORPHOLOGY COMMENT ABNORMAL
[2018-02-20] MEDS: NIFEDIPINE CR 30 MG TAB PO SCH ×2 (09:00→17:46)
[2018-02-20] MEDS: PANTOPRAZOLE SOD 40 MG TABEC PO SCH (09:00)
[2018-02-20] MEDS: ATENOLOL 50 MG TAB PO SCH (12:00)
[2018-02-20] MEDS: MORPHINE SULFATE 2 MG/ML SYR IV PRN (13:09)
[2018-02-20] MEDS: ONDANSETRON HCL INJ 2 MG/ML VIAL IV PRN ×2 (17:32→21:30)
[2018-02-20] MEDS: SENNOSIDES 8.6 MG TAB PO SCH (20:20)
--- NOTE | 2018-02-20 20:50 | Progress Note ---
DATE: February 20, 2018 SUBJECTIVE: The patient is not feeling good today. She is nauseous. She is not even able to tolerate liquids today. REVIEW OF SYSTEMS: GENERAL: No fever or chills. CVS: No chest pain or palpitations. RESPIRATORY: No cough or expectoration. MEDICATIONS: Reviewed as per JAN. PHYSICAL EXAMINATION VITAL SIGNS: Temperature 99.3, pulse 76, respirations 18 to 19, blood pressure 111/65, oxygen saturation 95% on 2 liters of nasal cannula. GENERAL: Not in any acute distress. HEENT: Oral mucosa is moist. Anicteric sclerae. CVS: S1 and S2 regular with a 2/6 flow murmur at the apex. LUNGS: Bilaterally grossly clear. ABDOMEN: Incisional tenderness. Midline surgical dressing. Nondistended. No rebound, rigidity or guarding. Bowel sounds minimal. EXTREMITIES: Warm with no leg edema. LABORATORY DATA: WBC has come down to 6.79 from 16.29. Hemoglobin 13.7, hematocrit 44, MCV 75.2, platelet count 303,000. Sodium 136, potassium 4.0, chloride 108, bicarb 20, BUN 12, creatinine 0.61. PT 13.7, INR 1.14. The CT of the chest performed on 02/19/18 showed left liver subsegmental low density lesion most likely a small metastasis. This is distinct from the left liver cyst. Two nonspecific 4 mm right upper and middle lobe nodules. Irregular 3.1 cm right upper lobe opacity and adjacent tiny nodule most likely infectious. Attention on followup. A small bilateral effusion with scattered atelectasis. CT of the abdomen and pelvis done on 02/16 showed bilateral indeterminate adrenal lesion. There is no distinct metastasis. IMPRESSION: The patient presented with anemia, heme positive stool. Colonoscopy showed right colon mass, status post laparoscopic right hemicolectomy. CT of the abdomen with contrast showed indeterminate bilateral adrenal lesion without any distinct metastasis. However, CT of the chest is suggestive of tiny metastasis in the left lobe of the liver. She also has lung nodules. PLAN: From GI standpoint, the patient should be seen by oncology service as well. Surgical pathology is still pending to determine the stage of the colon cancer. The patient was doing good yesterday. She was tolerating clear liquids very well. Today, she is having nausea. Abdominal exam is also showing very minimal bowel sounds. Therefore, will do an abdominal x-ray to rule out any postoperative ileus. The rest of the postop care as per surgery. Job#: [id number] GH
--- NOTE | 2018-02-20 20:54 | Diagnostic Imaging Report ---
EXAM: Abdomen 1 View INDICATION: \S\s/p right hemicolectomy, having nausea, minimal bowel sound \[id number] \S\[id number] COMPARISON: CT dated 02/16/2018 FINDINGS: Nonobstructive bowel gas pattern. Mild pneumoperitoneum, probably postsurgical, evident by Rigler's sign in left abdomen. Surgical clips overlying mid abdomen. There is also suture line in right abdomen. Contrast excretion from prior CT in the bladder. Questionable retained contrast within bowel in left abdomen. Upper abdomen is excluded from the image. No acute osseous abnormality. IMPRESSION: 1. Very limited single view exam. 2. Nonobstructive bowel gas pattern. 3. Pneumoperitoneum, which is probably postsurgical. Signed by: Dr. Abdulkadir Baltazar MD on 02/20/2018 8:51 PM
[2018-02-21] VITALS (7 sets, daily range): BP systolic 118–147; BP diastolic 58–77
[2018-02-21] MEDS: ONDANSETRON HCL INJ 2 MG/ML VIAL IV PRN ×2 (02:13→06:49)
[2018-02-21] MEDS: PANTOPRAZOLE SOD 40 MG TABEC PO SCH (09:07)
[2018-02-21] MEDS: ATENOLOL 50 MG TAB PO SCH (09:07)
[2018-02-21] MEDS ORDERED: D5.45%NS/KCL 20MEQ 1,000 ML IV SCH (10:30)
[2018-02-21] MEDS ORDERED: SODIUM CHLORIDE 0.9% 50ML 50 ML ONE (13:58)
[2018-02-21] MEDS ORDERED: IOPAMIDOL 370 MG/ML 200 ML INFUS..BTL INJ ONE (13:59)
--- NOTE | 2018-02-21 14:47 | Diagnostic Imaging Report ---
PROCEDURE: CT ABDOMEN \T\ PELVIS W/WO CONTRAST TECHNIQUE: The abdomen and pelvis were scanned utilizing a multidetector helical scanner from the diaphragm to the lesser trochanter before and after the IV administration of 100 cc of Isovue 370. Coronal and sagittal multiplanar reformations were obtained. COMPARISON: None. INDICATIONS: ANEMIA, ADRENAL AND LIVER LESION FINDINGS: LOWER THORAX: Small pleural effusions and adjacent lower lobe atelectasis. HEPATOBILIARY: Left hepatic 1.1 cm cyst with tiny punctate calcification. No suspicious focal hepatic lesions. No biliary ductal dilatation. SPLEEN: No splenomegaly. PANCREAS: No focal masses or ductal dilatation. ADRENALS: Right adrenal 1.3 cm and left adrenal 0.9 cm nodules have densities on noncontrast CT which likely reflect lipid rich adenomas. The right nodule has a washout of 61% compatible with an adenoma, and the left nodule has a washout of 24% which is indeterminate. Evaluation is somewhat limited as there is hyperdensity in the right renal pelvis and renal cortices which may be related to test bolus injection. KIDNEYS/URETERS: No hydronephrosis, stones, or solid mass lesions. A right superior pole 0.9 cm hypodensity is indeterminate. PELVIC ORGANS/BLADDER: Tariq catheter in place. Otherwise, unremarkable. PERITONEUM / RETROPERITONEUM: Small amount of fluid in the left abdomen may represent complex fluid such as hemorrhage from recent surgery. Small amount of likely post-operative free air. No evidence of active contrast extravasation on arterial phase within the visualized portions of this hyperdense fluid. This fluid increases in density between the arterial phase (series 5 image 80) measuring 22 HU to 54 HU (series 8 image 90). LYMPH NODES: No lymphadenopathy. VESSELS: Replaced left hepatic artery arises from the left gastric artery. Scattered atherosclerotic calcifications. GI TRACT: No distention or wall thickening. Postsurgical changes related to right hemicolectomy with ileal colonic anastomosis. Multiple dilated loops of small bowel without transition which gradually tapers to distal ileum likely related to ileus. Enteric contrast is noted in the colon. BONES AND SOFT TISSUES: Midline laparotomy scar and multiple skin vadim. Mild anasarca. IMPRESSION: 1. Status post right colonic resection and ileocolonic anastomosis. 2. Hyperdense fluid in the left abdomen may represent hemorrhage from recent surgery. No evidence of active arterial contrast extravasation within the visualized portions of this hyperdense fluid. However, increased density of this fluid between the arterial phase and the 15 minute delayed phase may reflect a slow active bleed/oozing or clotting. Consider serial hemoglobin and hematocrit and follow up CT in the setting of worsening anemia. 3. Multiple dilated loops of small bowel which gradually tapers to the distal ileum likely related to ileus. 4. Bilateral adrenal nodules with density on the noncontrast phase compatible with lipid rich adenomas. Adrenal washout of the right adrenal nodule is concordant with an adenoma. Left adrenal washout indicates the nodule is indeterminate. Given suggestion of test contrast bolus prior to acquisition of the non-contrast phase (contrast present in the urinary collecting system), evaluation is limited. Recommend follow up CT or MRI adrenal mass protocol on an outpatient basis. 5. Left hepatic cyst. No suspicious hepatic lesions. 6. Small pleural effusions, anasarca, and ascites. Small amount of likely post-operative pneumoperitoneum. 1. Findings discussed with Dr. Santos on 02/21/2018 at 1640 hrs. Dictated by: Haider Lara M.D. on 02/21/2018 at 14:47 Electronically approved by: Haider Lara M.D. on 02/21/2018 at 14:47
[2018-02-21] MEDS: SENNOSIDES 8.6 MG TAB PO SCH (19:18)
[2018-02-21] MEDS: METRONIDAZOLE 500 MG TAB PO SCH (22:45)
[2018-02-21] MEDS: CHOLESTYRAMINE 4 GM PACKET PO PRN (23:00)
[2018-02-22] VITALS (7 sets, daily range): BP systolic 108–136; BP diastolic 54–66
[2018-02-22] MEDS: METRONIDAZOLE 500 MG TAB PO SCH ×3 (05:37→22:00)
[2018-02-22] MEDS: CHOLESTYRAMINE 4 GM PACKET PO PRN ×2 (05:37→22:00)
[2018-02-22 06:26] LABS: BASOPHILS # (AUTO) 0.1 (0.0-0.1); BASOPHILS % 0.7 % (0.0-1.0); EOSINOPHILS # (AUTO) 0.2 (0.0-0.4); EOSINOPHILS % 2.9 % (0.0-6.0); HEMOGLOBIN 12.2 g/dL (12.0-16.0); LYMPHOCYTES % 14.3 % (18.0-39.1); MEAN CORPUSCULAR HEMOGLOBIN 23.6 pg (28-32); MEAN CORPUSCULAR HGB CONC 31.3 g/dL (31-35); MEAN CORPUSCULAR VOLUME 75.6 fL (81-99); MONOCYTES # (AUTO) 0.6 (0.2-0.8); MONOCYTES % 8.1 % (4.4-11.3); NEUTROPHILS % 73.3 % (38.7-80.0); PLATELET COUNT 297 x10e3/uL (140-360); RED BLOOD COUNT 5.16 x10e6/uL (3.6-5.1)
[2018-02-22 06:49] LABS: ANION GAP 15.1 mmol/L (8-16); BLOOD UREA NITROGEN 27 mg/dL (7-26); BUN/CREATININE RATIO 48 (6-25); CALCIUM 8.4 mg/dL (8.4-10.2); CARBON DIOXIDE 20 mmol/L (22-29); CHLORIDE 106 mmol/L (98-107); CREATININE, SERUM 0.56 mg/dL (0.57-1.11); EST GLOMERULAR FILTRATION RATE > 60 ML/MIN (60-); GLUCOSE 88 mg/dL (74-118); POTASSIUM 3.1 mmol/L (3.5-5.1); SODIUM 138 mmol/L (136-145)
[2018-02-22] MEDS: NIFEDIPINE CR 30 MG TAB PO SCH (08:35)
[2018-02-22] MEDS: ATENOLOL 50 MG TAB PO SCH (08:36)
[2018-02-22 10:33] LABS: ANISOCYTOSIS SLIGHT; BAND NEUTROPHILS % (MANUAL) 1 %; EOSINOPHILS % (MANUAL) 3 % (0-7); HYPOCHROMASIA SLIGHT; LYMPHOCYTES % (MANUAL) 17 % (19-48); MICROCYTOSIS SLIGHT; MONOCYTES % (MANUAL) 2 % (3.4-9.0); NEUTROPHILS % (MANUAL) 77 % (40-74); PLATELET ESTIMATE ADEQUATE; PLATELET MORPHOLOGY COMMENT NORMAL; RBC MORPHOLOGY COMMENT NORMAL
[2018-02-22] MEDS ORDERED: POTASSIUM CHLORIDE 20 MEQ TAB CR PO ONE (14:30)
[2018-02-22] MEDS: ACETAMINOPHEN 325 MG TAB PO PRN (18:02)
[2018-02-23] VITALS: BP 125/59
[2018-02-23 04:00] VITALS: BP 133/62
[2018-02-23] MEDS: CHOLESTYRAMINE 4 GM PACKET PO PRN (04:00)
[2018-02-23] MEDS: METRONIDAZOLE 500 MG TAB PO SCH ×3 (05:25→21:57)
[2018-02-23 07:11] LABS: BASOPHILS % 0.6 % (0.0-1.0); EOSINOPHILS # (AUTO) 0.3 (0.0-0.4); EOSINOPHILS % 3.8 % (0.0-6.0); HEMATOCRIT 34.5 % (34.2-44.1); LYMPHOCYTES # (AUTO) 0.8 (1.0-3.2); LYMPHOCYTES % 12.7 % (18.0-39.1); MEAN CORPUSCULAR HEMOGLOBIN 23.6 pg (28-32); MEAN CORPUSCULAR HGB CONC 31.9 g/dL (31-35); MEAN CORPUSCULAR VOLUME 73.9 fL (81-99); MONOCYTES # (AUTO) 0.7 (0.2-0.8); MONOCYTES % 10.9 % (4.4-11.3); NEUTROPHILS # (AUTO) 4.6 (2.1-6.9); NEUTROPHILS % 70.9 % (38.7-80.0); PLATELET COUNT 289 x10e3/uL (140-360); RED BLOOD COUNT 4.67 x10e6/uL (3.6-5.1)
[2018-02-23 07:36] LABS: ANION GAP 10.4 mmol/L (8-16); BLOOD UREA NITROGEN 22 mg/dL (7-26); BUN/CREATININE RATIO 43 (6-25); CALCIUM 8.1 mg/dL (8.4-10.2); CARBON DIOXIDE 22 mmol/L (22-29); CHLORIDE 105 mmol/L (98-107); CREATININE, SERUM 0.51 mg/dL (0.57-1.11); EST GLOMERULAR FILTRATION RATE > 60 ML/MIN (60-); GLUCOSE 107 mg/dL (74-118); POTASSIUM 3.4 mmol/L (3.5-5.1); SODIUM 134 mmol/L (136-145)
[2018-02-23 08:00] VITALS: BP 145/65
[2018-02-23] MEDS: NIFEDIPINE CR 30 MG TAB PO SCH (09:45)
[2018-02-23] MEDS: DICYCLOMINE HCL 20 MG TAB PO SCH ×4 (09:45→21:00)
[2018-02-23] MEDS: ATENOLOL 50 MG TAB PO SCH (09:45)
[2018-02-23 12:00] VITALS: BP 119/57
[2018-02-23] MEDS ORDERED: POTASSIUM CHLORIDE 10 MEQ TABCR PO ONE (12:00)
[2018-02-23 14:04] LABS: POIKILOCYTOSIS MARKED; RBC MORPHOLOGY COMMENT ABNORMAL
[2018-02-23 14:05] LABS: ANISOCYTOSIS MARKED; MICROCYTOSIS SLIG
[2018-02-23 14:06] LABS: PLATELET ESTIMATE ADEQUATE; PLATELET MORPHOLOGY COMMENT NORMAL
[2018-02-23 16:00] VITALS: BP 123/60
[2018-02-23] MEDS: IRON SUCROSE 200 MG in SODIUM CHLORIDE 0.9% 100 ML 100 ML IV SCH (20:00)
[2018-02-23 20:32] VITALS: BP 123/60
[2018-02-23] MEDS: FERROUS SULFATE 325 MG TAB PO SCH (21:00)
[2018-02-24] VITALS: BP 108/66
[2018-02-24] MEDS: METRONIDAZOLE 500 MG TAB PO SCH ×3 (05:11→23:08)
[2018-02-24 08:00] VITALS: BP 108/66
[2018-02-24 08:02] VITALS: BP 142/72
[2018-02-24] MEDS: DICYCLOMINE HCL 20 MG TAB PO SCH ×4 (08:44→20:55)
[2018-02-24] MEDS: FERROUS SULFATE 325 MG TAB PO SCH ×3 (08:45→20:55)
[2018-02-24] MEDS: NIFEDIPINE CR 30 MG TAB PO SCH (08:45)
[2018-02-24] MEDS: CYANOCOBALAMIN 1,000 MCG TAB PO SCH (08:45)
[2018-02-24] MEDS: ATENOLOL 50 MG TAB PO SCH (08:45)
[2018-02-24] MEDS ORDERED: CYANOCOBALAMIN INJ 1,000 MCG/ML VIAL IM ONE (09:00)
[2018-02-24 12:00] VITALS: BP 143/71
[2018-02-24 16:00] VITALS: BP 120/56
[2018-02-24] MEDS ORDERED: IRON SUCROSE 200 MG in SODIUM CHLORIDE 0.9% 100 ML 100 ML IV SCH (19:15)
[2018-02-24] MEDS ORDERED: LOPERAMIDE HCL 2 MG CAP PO PRN (19:15)
[2018-02-24] MEDS ORDERED: SODIUM CHLORIDE 0.9% 250ML 250 ML ONE (20:03)
[2018-02-24] MEDS: IRON SUCROSE 200 MG in SODIUM CHLORIDE 0.9% 100 ML 100 ML IV SCH (20:55)
[2018-02-24 21:20] VITALS: BP 160/68
[2018-02-25] VITALS: BP 121/57
[2018-02-25 04:00] VITALS: BP 128/58
[2018-02-25 06:48] LABS: BASOPHILS # (AUTO) 0.1 (0.0-0.1); BASOPHILS % 0.7 % (0.0-1.0); EOSINOPHILS # (AUTO) 0.2 (0.0-0.4); EOSINOPHILS % 2.6 % (0.0-6.0); HEMATOCRIT 37.3 % (34.2-44.1); HEMOGLOBIN 11.7 g/dL (12.0-16.0); LYMPHOCYTES # (AUTO) 1.1 (1.0-3.2); LYMPHOCYTES % 13.4 % (18.0-39.1); MEAN CORPUSCULAR HEMOGLOBIN 23.5 pg (28-32); MEAN CORPUSCULAR HGB CONC 31.4 g/dL (31-35); MEAN CORPUSCULAR VOLUME 75.1 fL (81-99); MONOCYTES # (AUTO) 0.6 (0.2-0.8); MONOCYTES % 7.8 % (4.4-11.3); PLATELET COUNT 345 x10e3/uL (140-360); RED BLOOD COUNT 4.97 x10e6/uL (3.6-5.1)
[2018-02-25 06:58] LABS: BLOOD UREA NITROGEN 10 mg/dL (7-26); BUN/CREATININE RATIO 19 (6-25); CALCIUM 8.4 mg/dL (8.4-10.2); CARBON DIOXIDE 25 mmol/L (22-29); CHLORIDE 106 mmol/L (98-107); CREATININE, SERUM 0.52 mg/dL (0.57-1.11); EST GLOMERULAR FILTRATION RATE > 60 ML/MIN (60-); GLUCOSE 95 mg/dL (74-118); SODIUM 138 mmol/L (136-145)
[2018-02-25 08:00] VITALS: BP 133/74
[2018-02-25] MEDS: CYANOCOBALAMIN 1,000 MCG TAB PO SCH (09:00)
[2018-02-25] MEDS: ATENOLOL 50 MG TAB PO SCH (09:00)
[2018-02-25] MEDS: FERROUS SULFATE 325 MG TAB PO SCH (09:00)
[2018-02-25] MEDS: DICYCLOMINE HCL 20 MG TAB PO SCH ×2 (09:00→13:00)
[2018-02-25] MEDS: NIFEDIPINE CR 30 MG TAB PO SCH (09:00)
[2018-02-25] MEDS ORDERED: VITAMIN B-121000 MCG PO (09:56)
[2018-02-25] MEDS ORDERED: QUESTRAN PACKET4 GM PO (09:56)
[2018-02-25] MEDS ORDERED: HEMOCYTE PLUS1 EACH PO (09:57)
[2018-02-25] MEDS ORDERED: NIFEDIPINE ER30 M1 PO (09:57)
[2018-02-25] MEDS ORDERED: ZOFRAN ODT4 MG SL (09:58)
[2018-02-25] MEDS ORDERED: ACETAMINOPHEN325 M1 PO (10:00)
[2018-02-25 11:59] VITALS: BP 113/58
[2018-02-25] MEDS: METRONIDAZOLE 500 MG TAB PO SCH (13:14)
--- NOTE | 2018-02-25 13:46 | Discharge Summary ---
PRIMARY CARE PHYSICIAN: Dr. Fred Phelan. CONSULTANTS: 1. Dr. Joshua Small. 2. Dr. Ken Ang. 3. Dr. Cameron Thompson. 4. Dr. Dalton Heredia. FINAL DIAGNOSES: 1. Anemia, status post multiple blood transfusions. 2. Status post colonoscopy with right colon mass, status post right hemicolectomy. 3. Diarrhea, resolved. 4. Anemia. 5. Possible metastasis with the liver and adrenal lesion. Will need PET scan as an outpatient. SUMMARY: An 82-year-old female came in with profound anemia. The patient is status post 3 units blood transfusion. Her hemoglobin and hematocrit were 5.6 and 20.5 on admission. The patient did receive 3 units of blood transfusion. She underwent colonoscopy. She had a right colon mass. Subsequently, she underwent right hemicolectomy done by Dr. Cameron Thompson. Patient was stable postop but did have some diarrhea and some pain. Workup from metastasis with adrenal lesion. A CT scan of the abdomen and pelvis with adrenal and liver protocol inconclusive, however. The patient is unable to get MRI due to her claustrophobia. Dr. Ang saw the patient and advised further followup as an outpatient for a PET scan for metastasis workup. Patient is stable. She will go home today. She will follow up with Dr. Tonie Reed, her network oncologist. She will follow up Dr. Cameron Thompson for postoperative care. Patient is stable, discharged home today. Resume home medication, which is including Plavix. Patient is stable, no sign of bleeding. She is stable for followup. Job#: [id number] EV
== END 2018-02-25 14:05 | disposition home health service (06) | DRG 330 ==
LOC: ER 19:17 → INTOOBSV 23:01 → OBSVTOIN 23:01 → IMCU 23:01 → OBSVTOIN 02-14 12:09 → MED/SURG 02-14 15:57 → ICU 02-17 15:41 → MED/SURG2 02-18 15:56
PROVIDERS: ADMIT Internal Medicine; ATTEND Internal Medicine
PROC: 30250N1 (ICD-10-PCS; 2018-02-14)
PROC: 0DB68ZX Excision of Stomach, Via Natural or Artificial Opening Endoscopic, Diagnostic (ICD-10-PCS; 2018-02-16)
PROC: 0DBL8ZX Excision of Transverse Colon, Via Natural or Artificial Opening Endoscopic, Diagnostic (ICD-10-PCS; 2018-02-16)
PROC: 07BB0ZX Excision of Mesenteric Lymphatic, Open Approach, Diagnostic (ICD-10-PCS; 2018-02-17)
PROC: 0DTF0ZZ Resection of Right Large Intestine, Open Approach (ICD-10-PCS; principal; 2018-02-17 11:16)
DX: C18.2 Malignant neoplasm of ascending colon (principal); D62 Acute posthemorrhagic anemia; C78.7 Secondary malignant neoplasm of liver and intrahepatic bile duct; C79.70 Secondary malignant neoplasm of unspecified adrenal gland; K56.7 Ileus, unspecified; K22.2 Esophageal obstruction; D50.0 Iron deficiency anemia secondary to blood loss (chronic); K59.00 Constipation, unspecified; I25.10 Atherosclerotic heart disease of native coronary artery without angina pectoris; Z95.5 Presence of coronary angioplasty implant and graft; I10 Essential (primary) hypertension; R13.10 Dysphagia, unspecified; K29.70 Gastritis, unspecified, without bleeding; K44.9 Diaphragmatic hernia without obstruction or gangrene; K64.8 Other hemorrhoids; R00.1 Bradycardia, unspecified; R19.7 Diarrhea, unspecified
CPT/HCPCS: 36415; 43239; 45380; 71046; 71260; 74018; 74177; 74178; 80048; 80053; 81001; 82270; 82378; 82550; 82553; 82607; 82746; 82948; 83540; 83735; 83921; 84443; 84466; 84484; 85025; 85610; 85730; 86850; 86900; 86920; 87045; 87493; 88305; 88307; 88309; 88312; 88342; 93005; 93306; 96361; 96367; 99284; G0378; J0694; J1100; J1756; J1940; J2001; J2270; J2405; J3420; J7030; J7050; P9016; Q9967

== ENCOUNTER → 2019-12-31 | Day surgery (SDC) | payer MEDICARE ==
[2019-12-29 14:38] LABS: BASOPHILS % 0.8 % (0.0-1.0); EOSINOPHILS # (AUTO) 0.1 (0.0-0.4); EOSINOPHILS % 1.3 % (0.0-6.0); HEMATOCRIT 37.4 % (34.2-44.1); HEMOGLOBIN 12.3 g/dL (12.0-16.0); LYMPHOCYTES # (AUTO) 1.7 (1.0-3.2); LYMPHOCYTES % 31.6 % (18.0-39.1); MEAN CORPUSCULAR HEMOGLOBIN 29.9 pg (28-32); MEAN CORPUSCULAR HGB CONC 32.9 g/dL (31-35); MEAN CORPUSCULAR VOLUME 90.8 fL (81-99); MONOCYTES # (AUTO) 0.5 (0.2-0.8); MONOCYTES % 9.2 % (4.4-11.3); NEUTROPHILS % 56.9 % (38.7-80.0); PLATELET COUNT 254 x10e3/uL (140-360); RED BLOOD COUNT 4.12 x10e6/uL (3.6-5.1); RED CELL DISTRIBUTION WIDTH 12.6 % (11.7-14.4)
[~2019-12-31] MED LIST: ACETAMINOPHEN325 M1 PO; ASPIRIN81 MG PO; ATENOLOL50 MG PO; HEMOCYTE PLUS1 EACH PO; LIDOCAINE HCL 2% LOCAL INJ 5 ML SDV VIAL INJ ONE; NIFEDIPINE ER30 M1 PO; PANTOPRAZOLE SO40 MG PO; PLAVIX75 MG PO; PROPOFOL IV EMULSION 10 MG/ML 50 ML VIAL ONE; QUESTRAN PACKET4 GM PO; SIMVASTATIN20 MG PO; VITAMIN B-121000 MCG PO; ZOFRAN ODT4 MG SL
--- OUTSIDE RECORDS SUMMARY | 2019-12-31 06:35 | XMS REPORT | Summary of Care ---
Author Author KESHAWN FIGUEROA M.D. Organization Unknown Address [facility] Phone Unavailable Care Team Providers Care Gristmiller Name Role Phone KESHAWN FIGUEROA M.D. 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 Bilateral impacted cerumen (380.4, H61.23) Status: Active Chronic otitis externa (380.23, H60.60) Status: Active Medications Name Dates Details Simvastatin 20 MG Oral Tablet Active Plavix 75 MG Oral Tablet * Refills: 0 Active Pantoprazole Sodium 40 MG Oral Tablet Delayed Release * Refills: 0 Active Calcium 600 MG Oral Tablet * Refills: 0 Active Vitamin B-12 100 MCG Oral Tablet * Refills: 0 Active Centrum Silver TABS * Refills: 0 Active NIFEdipine CR 30 MG TBCR * Refills: 0 Active Clopidogrel Bisulfate 75 MG Oral Tablet * Refills: 0 Active Lumigan 0.03 % SOLN * Refills: 0 Active Combigan 0.2-0.5 % Ophthalmic Solution * Refills: 0 Active Iron TABS * Refills: 0 Active Fluocinolone Acetonide 0.01 % Otic Oil 3 to 4 drops to both ears daily. * Quantity: 1 Refills: 10 KESHAWN FIGUEROA M.D. * Start : 18-Aug-2019 Active 20 ML Bottle Allergies and Adverse Reactions Name Dates Details Codeine Derivatives (Allergy) Status: Active iodine (Allergy) Status: Active Past Medical History Name Dates Details History of cardiac disorder (V12.50, Z86.79) Status: Resolved History of glaucoma (V12.49, Z86.69) Status: Resolved History of hypertension (V12.59, Z86.79) Status: Resolved Procedures Procedure Dates Details History of Hysterectomy Completed History of Ear Surgery Completed History of Heart Surgery Completed History of Cholecystotomy Completed Immunization Name Dates Details Immunizations not documented Family History Name Dates Details Family history of cardiac disorder (V17.49, Z82.49) Status: Active Family history of malignant neoplasm (V16.9, Z80.9) Status: Active Social History Name Dates Details - Status: Name Dates Details Never smoker Vital Signs Date Test Result Details [id number] BP Systolic 134 mm[Hg] Status: BP Diastolic 60 mm[Hg] Status: Heart Rate 66 /min Status: Results Date Description Value Details Results not documented Plan of Care Name Dates Details Planned Observations Planned Goals not documented Interventions Provided Medication Changes* Fluocinolone Acetonide 0.01 % Otic Oil - Start Plan* 1. Begin Dermotic. FU as needed. Instructions Name Dates Details Instructions not documented Encounters Appointment; QUYNH PAGE M.D. Encounter Diagnosis: Problem not documented On: 09-Apr-2019 10:30 Appointment; QUYNH PAGE M.D. Encounter Diagnosis: Problem not documented On: 23-Apr-2019 13:00 Appointment; KESHAWN FIGUEROA M.D. Encounter Diagnosis: Problem not documented On: 14-Jul-2019 10:15 Appointment; KESHAWN FIGUEROA M.D. Encounter Diagnosis: Problem not documented On: 18-Aug-2019 9:45
[2019-12-31 10:10] VITALS: BP 160/90
== END | disposition home or self-care (01) ==
LOC: OR 06:33
PROVIDERS: ATTEND Internal Medicine Gastroenterology
DX: K22.2 Esophageal obstruction (principal); D12.4 Benign neoplasm of descending colon; Z85.038 Personal history of other malignant neoplasm of large intestine; K29.70 Gastritis, unspecified, without bleeding; K21.9 Gastro-esophageal reflux disease without esophagitis; Z98.0 Intestinal bypass and anastomosis status; K64.8 Other hemorrhoids; K44.9 Diaphragmatic hernia without obstruction or gangrene; I25.10 Atherosclerotic heart disease of native coronary artery without angina pectoris; I10 Essential (primary) hypertension; Z88.6 Allergy status to analgesic agent; Z01.810 Encounter for preprocedural cardiovascular examination; Z01.812 Encounter for preprocedural laboratory examination; Z79.02 Long term (current) use of antithrombotics/antiplatelets; Z68.1 Body mass index [BMI] 19.9 or less, adult; Z95.5 Presence of coronary angioplasty implant and graft
CPT/HCPCS: 36415; 43249; 45380; 85025; 88305; 93005; J2001; J2704; 43235; 43450; 45378

== ENCOUNTER 2020-08-11 04:19 | Observation (INO) | payer MEDICARE, OTHER ==
[~2020-08-11] VITALS: Ht 152.4 cm; Wt 44.9 kg
[2020-08-11] VITALS (8 sets, daily range): BP systolic 94–131; BP diastolic 54–65
[~2020-08-11 04:19] MED LIST changes: -LIDOCAINE HCL 2% LOCAL INJ 5 ML SDV VIAL INJ ONE; -PROPOFOL IV EMULSION 10 MG/ML 50 ML VIAL ONE
[2020-08-11] MEDS ORDERED: ASPIRIN 81 MG CHEW TAB PO ONE (04:30)
[2020-08-11 04:32] LABS: BASOPHILS % 0.6 % (0.0-1.0); EOSINOPHILS # (AUTO) 0.1 (0.0-0.4); EOSINOPHILS % 1.8 % (0.0-6.0); HEMATOCRIT 38.6 % (34.2-44.1); HEMOGLOBIN 12.9 g/dL (12.0-16.0); LYMPHOCYTES # (AUTO) 1.7 (1.0-3.2); LYMPHOCYTES % 33.1 % (18.0-39.1); MEAN CORPUSCULAR HEMOGLOBIN 29.6 pg (28-32); MEAN CORPUSCULAR HGB CONC 33.4 g/dL (31-35); MEAN CORPUSCULAR VOLUME 88.5 fL (81-99); MONOCYTES # (AUTO) 0.5 (0.2-0.8); NEUTROPHILS # (AUTO) 2.8 (2.1-6.9); NEUTROPHILS % 55.3 % (38.7-80.0); PLATELET COUNT 270 x10e3/uL (140-360); RED BLOOD COUNT 4.36 x10e6/uL (3.6-5.1); RED CELL DISTRIBUTION WIDTH 12.7 % (11.7-14.4)
--- NOTE | 2020-08-11 04:38 | Emergency Department Note ---
History of Present Illnes History of Present Illness Chief Complaint: Chest Pain History of Present Illness This is a 84 year old female WITH H/O CAD AND A STENT PLACED 20 YEARS AGO PRESENTS WITH C/O INTERMITTENT CHEST PAIN FOR PAST 3 DAYS, STATES THIS MORNING WHEN IT HAPPENED SHE ALSO HAD PAIN IN HER LEFT SHOULDER. CHEST PAIN RESOLVED AT THIS TIME, LASTED ABOUT 10 MINUTES TONIGHT, PT HAS NOT SEEN A HOT PIPE GAUGER IN A YEAR HER C ARDIOLOGIST DR ADKINS LAST YEAR. PT DENIES FEVER, DENIES SOB, DENIES DIAPHORESIS. . Historian: Patient Arrival Mode: Car Signals Intelligence Superintendent Required: No Onset (how long ago): day(s) (3) Location: CHEST Quality: PAIN/DISCOMFORT Radiation: Reports extremity (LEFT SHOULDER) Severity: moderate Onset quality: sudden Duration (how long): day(s) (3) Timing of current episode: intermittent Progression: resolved Chronicity: recurrent Context: Denies recent illness, Denies recent surgery, Denies trauma/injury Relieving factors: none Exacerbating factors: none Associated symptoms: Reports denies other symptoms Treatments prior to arrival: none Past Medical/Family History Physician Review I have reviewed the patient's past medical and family history. Any updates have been documented here. Past Medical History Recent Fever: No Clinical Suspicion of Infectio: No New/Unexplained Change in Ment: No Past Medical History: Hypertension, CAD, Anemia Other Medical History: ANEMIA Past Surgical History: Cholecysctectomy, Appendectomy, T&A, PCI, Cataract Removal Other Surgery: CARDIAC STENT Social History Smoking Cessation: Never Smoker Alcohol Use: None Any Illegal Drug Use: No Family History Family history of heart diseas: Yes Other family history HTN Other Last Tetanus: UNK Review of Systems Review of Systems Constitutional: Reports no symptoms EENTM: Reports no symptoms Cardiovascular: Reports as per HPI Respiratory: Reports no symptoms Gastrointestinal: Reports no symptoms Genitourinary: Reports no symptoms Musculoskeletal: Reports no symptoms Integumentary: Reports no symptoms Neurological: Reports no symptoms Psychological: Reports no symptoms Endocrine: Reports no symptoms Hematological/Lymphatic: Reports no symptoms Physical Exam Related Data Allergies: Coded Allergies: codeine (Verified Allergy, Unknown, 02/13/18) Triage Vital Signs Vital Signs Date Time Temp Pulse Resp B/P (MAP) Pulse Ox O2 Delivery O2 Flow Rate FiO2 08/11/20 04:19 98.5 67 16 160/67 98 Room Air Vital signs reviewed: Yes Physical Exam CONSTITUTIONAL Constitutional: Present well-developed, Present well-nourished HENT HENT: Present normocephalic, Present atraumatic, Present oropharynx clear/moist, Present nose normal HENT L/R: Present left ext ear normal, Present right ext ear normal EYES Eyes: Reports PERRL, Reports conjunctivae normal NECK Neck: Present ROM normal PULMONARY Pulmonary: Present effort normal, Present breath sounds normal CARDIOVASCULAR Cardiovascular: Present regular rhythm, Present heart sounds normal, Present capillary refill normal, Present normal rate GASTROINTESTINAL Abdominal: Present soft, Present nontender, Present bowel sounds normal GENITOURINARY Genitourinary: Present exam deferred SKIN Skin: Present warm, Present dry MUSCULOSKELETAL Musculoskeletal: Present ROM normal NEUROLOGICAL Neurological: Present alert, Present oriented x 3, Present no gross motor or sensory deficits PSYCHOLOGICAL Psychological: Present mood/affect normal, Present judgement normal Results Laboratory Laboratory Laboratory Tests Test 08/11/20 04:24 White Blood Count 5.10 x10e3/uL (4.8-10.8) Red Blood Count 4.36 x10e6/uL (3.6-5.1) Hemoglobin 12.9 g/dL (12.0-16.0) Hematocrit 38.6 % (34.2-44.1) Mean Corpuscular Volume 88.5 fL (81-99) Mean Corpuscular Hemoglobin 29.6 pg (28-32) Mean Corpuscular Hemoglobin Concent 33.4 g/dL (31-35) Red Cell Distribution Width 12.7 % (11.7-14.4) Platelet Count 270 x10e3/uL (140-360) Neutrophils (%) (Auto) 55.3 % (38.7-80.0) Lymphocytes (%) (Auto) 33.1 % (18.0-39.1) Monocytes (%) (Auto) 9.0 % (4.4-11.3) Eosinophils (%) (Auto) 1.8 % (0.0-6.0) Basophils (%) (Auto) 0.6 % (0.0-1.0) Neutrophils # (Auto) 2.8 (2.1-6.9) Lymphocytes # (Auto) 1.7 (1.0-3.2) Monocytes # (Auto) 0.5 (0.2-0.8) Eosinophils # (Auto) 0.1 (0.0-0.4) Basophils # (Auto) 0.0 (0.0-0.1) Absolute Immature Granulocyte (auto 0.01 x10e3/uL (0-0.1) Prothrombin Time 12.1 seconds (11.9-14.5) Prothromb Time International Ratio 0.85 Activated Partial Thromboplast Time 26.3 seconds (23.8-35.5) Sodium Level 140 mmol/L (136-145) Potassium Level 3.7 mmol/L (3.5-5.1) Chloride Level 105 mmol/L (98-107) Carbon Dioxide Level 25 mmol/L (22-29) Anion Gap 13.7 mmol/L (8-16) Blood Urea Nitrogen 14 mg/dL (7-26) Creatinine 0.75 mg/dL (0.57-1.11) Estimat Glomerular Filtration Rate > 60 ML/MIN (60-) BUN/Creatinine Ratio 19 (6-25) Glucose Level 120 mg/dL (74-118) Calcium Level 9.5 mg/dL (8.4-10.2) Total Bilirubin 0.7 mg/dL (0.2-1.2) Aspartate Amino Transf (AST/SGOT) 16 IU/L (5-34) Alanine Aminotransferase (ALT/SGPT) 10 IU/L (0-55) Alkaline Phosphatase 78 IU/L (40-150) Creatine Kinase 43 IU/L (29-168) Creatine Kinase MB 0.80 ng/mL (0-5.0) Troponin I 0.006 ng/mL (0-0.300) B-Type Natriuretic Peptide 49.7 pg/mL (0-100) Total Protein 7.1 g/dL (6.5-8.1) Albumin 4.4 g/dL (3.5-5.0) Globulin 2.7 g/dL (2.3-3.5) Albumin/Globulin Ratio 1.6 (0.8-2.0) Laboratory Tests Test 08/11/20 04:24 Lab results reviewed: Yes Imaging Imaging results reviewed: Yes Impressions Procedure: [id number] DX/CHEST SINGLE (PORTABLE) Exam Date: Exam Time: REPORT STATUS: Signed EXAMINATION: CHEST SINGLE (PORTABLE) INDICATION: CHEST PAIN COMPARISON: Chest CT dated 02/19/2018. Chest radiograph dated 02/13/2018. FINDINGS: Heart is not enlarged. Pulmonary vasculature is within normal limits. Cardiac stents. Stable appearance of the left base which correlates with epicardial fat-pad on prior CT. No consolidation. No pleural effusion. No pneumothorax. Cholecystectomy clips. IMPRESSION: No acute thoracic radiographic abnormality. Signed by: Radha Pond MD on 08/11/2020 4:59 AM Dictated By: RADHA POND MD 8 Transcribed By: HELGA on 08/11/20458 COPY TO: KESHAWN THOMAS MD~ Procedures 12 Lead ECG Interpretation ECG Interpretation : ECG: ECG 1 Signals Intelligence Superintendent: Interpreted by ED physician Date: Aug 11, 2020 Time: 04:23 Rhythm: sinus rhythm Rate: normal BPM: 72 QRS axis: normal ST segments normal: No (NONSPECIFIC ST CHANGES) T waves normal: Yes Other findings: no other findings Clinical Impression: abnormal ECG Assessment & Plan Medical Decision Making [facility] PT WITH H/O CAD AND PCI WITH INTERMITTENT CHEST PAIN FOR PAST 3 DAYS CBC, CMP, EKG, CARDIAC ENZYMES, BNP, CXR ORDERED TO EVAL FOR MYOCARDIAL INFARCTION, ELECTROLYTE ABNORMALITY, INTRATHORACIC ABNORMALITY, I SPOKE WITH DR DANNY FERNANDEZ IN OBS, I LEFT A MESSAGE FOR DR Quinton RODRIGUEZ Assessment & Plan Final Impression: (1) Chest pain Depart Disposition: ADMITTED Last Vital Signs Date Time Temp Pulse Resp B/P (MAP) Pulse Ox O2 Delivery O2 Flow Rate FiO2 08/11/20 04:19 98.5 67 16 160/67 98 Room Air Home Meds Reported Medications Clopidogrel Bisulfate* (PLAVIX) 75 Mg Tablet, 75 MG PO DAILY, #30 TAB 12/30/19 Nifedipine (NIFEDIPINE ER) 30 Mg Tab.er.24, MG PO DAILY, #30 02/25/18 Pantoprazole Sodium* (PROTONIX) 40 Mg Tablet.dr, 40 MG PO DAILY, TAB 02/14/18 Simvastatin (SIMVASTATIN) 20 Mg Tablet, 20 MG PO 2100, EA 02/14/18 Medications in the ED Aspirin 81 mg PRN ONCE PO ; Start 08/11/20 at 04:30; Stop 08/11/20 at 04:31; Status UNV KESHAWN THOMAS MD Aug 11, 2020 04:38
[2020-08-11 04:42] LABS: INR 0.85; PARTIAL THROMBOPLASTIN TIME 26.3 seconds (23.8-35.5); PROTHROMBIN TIME 12.1 seconds (11.9-14.5)
[2020-08-11 04:52] LABS: ALANINE AMINOTRANSFERASE 10 IU/L (0-55); ALBUMIN 4.4 g/dL (3.5-5.0); ALBUMIN/GLOBULIN RATIO 1.6 (0.8-2.0); ALKALINE PHOSPHATASE 78 IU/L (40-150); ANION GAP 13.7 mmol/L (8-16); BLOOD UREA NITROGEN 14 mg/dL (7-26); BUN/CREATININE RATIO 19 (6-25); CALCIUM 9.5 mg/dL (8.4-10.2); CARBON DIOXIDE 25 mmol/L (22-29); CHLORIDE 105 mmol/L (98-107); CREATINE KINASE 43 IU/L (29-168); CREATININE, SERUM 0.75 mg/dL (0.57-1.11); EST GLOMERULAR FILTRATION RATE > 60 ML/MIN (60-); GLUCOSE 120 mg/dL (74-118); POTASSIUM 3.7 mmol/L (3.5-5.1); SODIUM 140 mmol/L (136-145)
--- NOTE | 2020-08-11 05:02 | Diagnostic Imaging Report ---
EXAMINATION: CHEST SINGLE (PORTABLE) INDICATION: CHEST PAIN COMPARISON: Chest CT dated 02/19/2018. Chest radiograph dated 02/13/2018. FINDINGS: Heart is not enlarged. Pulmonary vasculature is within normal limits. Cardiac stents. Stable appearance of the left base which correlates with epicardial fat-pad on prior CT. No consolidation. No pleural effusion. No pneumothorax. Cholecystectomy clips. IMPRESSION: No acute thoracic radiographic abnormality. Signed by: Rock Albarado MD on 08/11/2020 4:59 AM
[2020-08-11] MEDS ORDERED: ONDANSETRON HCL INJ 2MG/ML 2ML 2 MG/ML VIAL IV PRN (05:30)
[2020-08-11] MEDS ORDERED: NITROGLYCERIN 0.4 MG SUBL SL PRN (05:30)
[2020-08-11] MEDS ORDERED: SODIUM CHLORIDE FLUSH 10 ML SYR INJ PRN (05:30)
[2020-08-11] MEDS ORDERED: FAMOTIDINE 20 MG TAB PO SCH (05:30)
--- NOTE | 2020-08-11 06:10 | NUR ---
Received the patient to the unit from er in a stretcher.aaox3.no resp.distress.no chest pain right now.oriented to the unit.iv to Left ac #18 g patent.tele#[address]bed alarm on.bed locked and in lowest position.phone and call light within reach.instructed to call for assistance as needed.
--- NOTE | 2020-08-11 07:07 | NUR ---
Bed side shift report given to oncoming Rn.stable condition.
[2020-08-11] MEDS ORDERED: VITAMIN B-121000 MCG PO (07:38)
[2020-08-11] MEDS ORDERED: OS-CAL 500+D T1 EACH PO (07:39)
[2020-08-11] MEDS ORDERED: COMBIGAN EYE DRO5 ML OU (07:43)
[2020-08-11] MEDS ORDERED: FAMOTIDINE20 MG PO (07:43)
[2020-08-11] MEDS ORDERED: LUMIGAN2.5 M1 OU (07:44)
[2020-08-11] MEDS: BRIMONIDINE/TIMOLOL (OPTH SOLN 5 ML DRPETTE OP SCH ×2 (09:38→17:24)
[2020-08-11] MEDS: CLOPIDOGREL BISULFATE 75 MG TAB PO SCH (09:50)
[2020-08-11] MEDS: CYANOCOBALAMIN 1,000 MCG TAB PO SCH (09:50)
[2020-08-11] MEDS: PANTOPRAZOLE SOD 40 MG TABEC PO SCH (09:50)
[2020-08-11] MEDS: NIFEDIPINE CR 30 MG TAB PO SCH (09:50)
[2020-08-11] MEDS: FAMOTIDINE 20 MG TAB PO SCH (09:50)
[2020-08-11] MEDS: OYST-CAL-D 500MG TABLET PO SCH ×2 (09:50→17:24)
--- NOTE | 2020-08-11 10:19 | History and Physical ---
PRIMARY CARE PHYSICIAN: Dr. Fred Phelan. CIVIL PROCESS SERVER: Dr. Cameron Florence. CHIEF COMPLAINT: Atypical chest pain. HISTORY OF PRESENT ILLNESS: The patient is an 84-year-old female with coronary artery disease, remote stent back in . The patient also has hypertension and dyslipidemia, came in with atypical chest pain. She is allergic to codeine. Cardiac enzymes negative. Lab work otherwise unremarkable. Chest x-ray unremarkable. The patient is pending for stress test. PAST MEDICAL HISTORY: Coronary artery disease with previous stent, on Plavix and aspirin. This was in , done by . Hypertension, dyslipidemia, and cataracts. Chronic anemia. History of right transverse colon mass, status post right colectomy with anastomosis. She had gallbladder surgery. Complete abdominal hysterectomy. SOCIAL HISTORY: The patient does not smoke or use alcohol. No regular drugs. ALLERGIES: CODEINE. HOME MEDICATIONS: List is reviewed. She is on Lumigan, Combigan, vitamin D with calcium, Plavix, B12, Pepcid, nifedipine ER, Protonix, simvastatin. PHYSICAL EXAMINATION: VITAL SIGNS: Temperature is 98, blood pressure 110/59, pulse rate is 79, respirations 18. GENERAL: The patient is not in acute distress. HEENT: Normocephalic and atraumatic. Anicteric. NECK: Supple grossly. PULMONARY: Diminished breath sounds. CARDIOVASCULAR: Regular rhythm. ABDOMEN: Soft and unremarkable. EXTREMITIES: No cyanosis or edema. NEUROLOGIC: No gross focal deficit. LABORATORY DATA: Sodium is 140, potassium 3.7, chloride 105, bicarb 25, BUN is 14, creatinine 0.7, glucose is 120. Cardiac enzymes negative. CK is negative. WBC 5, hemoglobin 13, hematocrit 38, and platelets 270. Serology; coronavirus PCR pending. Coagulation is normal. Chest x-ray is normal. IMPRESSION: 1. Chest pain associated with history of coronary stent back in 1998. 2. Multiple chronic baseline problems including hypertension. PLAN: Cardiology consultation with Dr. Cameron Florence. 2D echocardiogram. Resume home medication. We will follow up on patient recommendation. MD TESFAYE Whitten/JUSTIN /[id number]
--- NOTE | 2020-08-11 12:00 | Consultation ---
DATE OF CONSULTATION: Cardiology Consult HISTORY OF PRESENT ILLNESS: Teresa Dubose is an 84-year-old female with primary history of hypertension, hyperlipidemia, CAD with coronary stent placement in 1998, colon mass, status post hemicolectomy in 2018, admitted complaining of chest pain. She describes this chest pressure, intensity 4/10, radiating to her shoulders that started few hours before prior to admission. 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 The patient denies any other symptoms. Denies shortness of breath, dizziness, palpitations, nausea, or vomiting. PAST MEDICAL HISTORY: Hypertension, hyperlipidemia, CAD with previous stent (on Plavix and aspirin), chronic anemia, right transverse colon mass status post resection or hemicolectomy. PAST SURGICAL HISTORY: Coronary stents in 1998, hemicolectomy in 2018, cholecystectomy, and hysterectomy. SOCIAL HISTORY: The patient does not smoke or use alcohol or illicit drugs. FAMILY HISTORY: No known family history of coronary artery disease. ALLERGIES: CODEINE. HOME MEDICATIONS: Clopidogrel 75 mg p.o. daily, nifedipine 30 mg p.o. daily, simvastatin 20 mg p.o. daily, pantoprazole 40 mg p.o. daily, famotidine 20 mg p.o. daily, and vitamin B12 1000 mcg p.o. daily. PHYSICAL EXAMINATION: VITAL SIGNS: Temperature 97.9, pulse of 60, blood pressure is 110/59, and pulse oximetry 100% on room air. GENERAL: The patient is well-developed and well-nourished, in no acute respiratory distress. SKIN: Normal in appearance, texture, and temperature. Warm and dry. HEENT: The patient's cranium is normocephalic and atraumatic. Pupils are equally round and reactive to light and accommodation. NECK: Supple. Full range of motion. No cervical lymphadenopathy. No thyromegaly. Carotid upstroke is normal bilaterally without bruits. No JVD. RESPIRATORY: Normal respiratory effort. Lungs are clear to auscultation bilaterally. No wheezing, rhonchi, or rales. CARDIOVASCULAR: S1 and S2 are audible. Regular rate and rhythm. No significant murmurs heard. GI: Soft, nontender, and nondistended. Bowel sounds are present. EXTREMITIES: No cyanosis. No clubbing. No edema. NEUROVASCULAR: Motor is intact. Pulses are palpable 2+ throughout. NEUROLOGIC: Motor and sensory examination of upper and lower extremities are normal. ASSESSMENT AND PLAN: The patient is an 84-year-old admitted with atypical chest pain. Initial cardiac enzymes negative. EKG is unremarkable. Chest x-ray is unremarkable. 1. Monitor on telemetry. 2. Obtain echocardiogram to evaluate valves and LV function. 3. Restart cardiac medications, aspirin, Plavix, and statin. 4. We will arrange for Lexiscan nuclear stress test to exclude ischemia. Thank you for this consultation. We will continue to follow the patient and we will evaluate for any further need of any cardiac intervention. Dictated by Celina Ragland NP MD YENNIFER Villegas/JUSTIN /[id number]
[2020-08-11 12:41] LABS: CREATINE KINASE MB 1.2 ng/mL (0-5.0)
[2020-08-11 20:55] LABS: CREATINE KINASE MB 1.1 ng/mL (0-5.0)
[2020-08-11] MEDS ORDERED: BIMATOPROST(OPTH) 2.5 ML BOTTLE OP SCH (21:00)
[2020-08-11] MEDS ORDERED: SIMVASTATIN 20 MG TAB PO SCH (21:00)
[2020-08-12] VITALS: BP 115/65
[2020-08-12 04:34] VITALS: BP 133/68
[2020-08-12 05:16] LABS: CHOL/HDL RATIO 2.7 (3.0-3.6)
[2020-08-12] MEDS: PANTOPRAZOLE SOD 40 MG TABEC PO SCH (07:30)
[2020-08-12 07:46] VITALS: BP 135/65
[2020-08-12] MEDS: CLOPIDOGREL BISULFATE 75 MG TAB PO SCH ×2 (09:00→12:06)
[2020-08-12] MEDS: CYANOCOBALAMIN 1,000 MCG TAB PO SCH ×2 (09:00→12:01)
[2020-08-12] MEDS: NIFEDIPINE CR 30 MG TAB PO SCH ×2 (09:00→12:08)
[2020-08-12] MEDS: OYST-CAL-D 500MG TABLET PO SCH (09:00)
[2020-08-12] MEDS: FAMOTIDINE 20 MG TAB PO SCH (09:00)
[2020-08-12] MEDS ORDERED: REGADENOSON 0.4 MG/5 ML SYR IV ONE (09:01)
[2020-08-12 09:06] VITALS: BP 135/65
[2020-08-12 09:32] VITALS: BP 135/65
--- NOTE | 2020-08-12 10:00 | NUR ---
Signed new consent for stress test as the one she signed last night was for tredmill only, and she is having a adenosine. Pt is in agreement that she would not be able to do a tredmill stress. Left with nurse from stress test to go to Nuc Med via w/c
[2020-08-12] MEDS: BRIMONIDINE/TIMOLOL (OPTH SOLN 5 ML DRPETTE OP SCH (10:10)
--- OUTSIDE RECORDS SUMMARY | 2020-08-12 10:15 | XMS REPORT | Continuity of Care Document ---
Author Author [facility] t Organization [facility] Address [address] [place] [address] Phone Unavailable Care Team Providers Care Construction Code Administrator Name Role Phone Airam HILL MD PCP Nabeel THOMAS Attphys Unavailable KESHAWN FIGUEROA M.D. Attphys Unavailable QUYNH PAGE M.D. Attphys Unavailable RADHA DELGADO Attphys Unavailable RADHA DELGADO Admphys Unavailable Payers Payer Name Policy Type Policy Number Effective Date Expiration Date Nick Campbell Plus [id number] 2018 00:00:00 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 [facility] Bilateral impacted cerumen Bilateral impacted cerumen Problem Active [facility] Chronic otitis externa Chronic otitis externa Problem Active [facility] Anemia Anemia Problem Active [facility] Allergies, Adverse Reactions, Alerts Allergy Name Allergy Type Status Severity Reaction(s) Onset Date Inacti ve Date Treating Clinician Comments Source Codeine Allergy to Substance Active 2018-02-13 00:00:00 [facility] codeine DA Active [place] 2012-03-07 00:00:00 [facility] Codeine Derivatives drug allergy Active [facility] iodine drug allergy Active [facility] Family History Family Member Diagnosis Comments Start Date Stop Date Source Mother Family history of cardiac disorder [facility] Mother Family history of malignant neoplasm [facility] Social History Smoking Status Start Date Stop Date Source Never smoker [facility] Medications Ordered Medication Name Filled Medication Name Start Date Stop Da te Current Medication? Ordering Clinician Indication Dosage Frequency Signature (SIG) Comments Components Source Fluocinolone Acetonide 0.01 % Otic Oil Fluocinolone Acetonid e 0.01 % Otic Oil 2019-08-18 00:00:00 Yes KESHAWN FIGUEROA M.D. 3 to 4 drops to both ears daily. [facility] Simvastatin 20 MG Oral Tablet Simvastatin 20 MG Oral Tablet Ye s [facility] Plavix 75 MG Oral Tablet Plavix 75 MG Oral Tablet Yes [facility] Pantoprazole Sodium 40 MG Oral Tablet Delayed Release Pantoprazole Sodium 40 MG Oral Tablet Delayed Release Yes [facility] Calcium 600 MG Oral Tablet Calcium 600 MG Oral Tablet Yes [facility] Vitamin B-12 100 MCG Oral Tablet Vitamin B-12 100 MCG Oral Tablet Yes [facility] Centrum Silver TABS Centrum Silver TABS Yes [facility] NIFEdipine CR 30 MG TBCR NIFEdipine CR 30 MG TBCR Yes [facility] Clopidogrel Bisulfate 75 MG Oral Tablet Clopidogrel Bisulfat e 75 MG Oral Tablet Yes [facility] Lumigan 0.03 % SOLN Lumigan 0.03 % SOLN Yes [facility] Combigan 0.2-0.5 % Ophthalmic Solution Combigan 0.2-0.5 % Ophtha lmic Solution Yes [facility] Iron TABS Iron TABS Yes [facility] Acetaminophen 325 Mg Tablet Acetaminophen 325 Mg Tablet Yes 650 Every 6 Hours as needed for Pain [facility] Atenolol 50 Mg Tablet Atenolol 50 Mg Tablet Yes 50 Daily [facility] Cholestyramine (With Sugar) (Questran Packet) 4 Gm Pac ket Cholestyramine (With Sugar) (Questran Packet) 4 Gm Packet Yes 4 E very 6 Hours [facility] Clopidogrel Bisulfate (Plavix) 75 Mg Tablet Clopidogre l Bisulfate (Plavix) 75 Mg Tablet Yes 75 Daily [facility] Cyanocobalamin (Vitamin B-12) 1,000 Mcg Tab Cyanocobal rosas (Vitamin B-12) 1,000 Mcg Tab Yes 1000 Daily [facility] Fe Fumarate/Fa/Mv, Min Comb#15 (Hemocyte Plus Capsule) 1 Each Capsule Fe Fumarate/Fa/Mv, Min Comb#15 (Hemocyte Plus Capsule) 1 Each Capsule Yes Twice A Day [facility] Nifedipine (Nifedipine Er) 30 Mg Tab.er.24 Nifedipine (Nifedipine Er) 30 Mg Tab.er.24 Yes Daily [facility] Ondansetron (Zofran Odt) 4 Mg Tab.rapdis Ondansetron ( Zofran Odt) 4 Mg Tab.rapdis Yes 4 Every 6 Hours C [facility] Pantoprazole Sodium (Protonix) 40 Mg Tablet. Pantopr azole Sodium (Protonix) 40 Mg Tablet. Yes 40 Daily [facility] Simvastatin 20 Mg Tablet Simvastatin 20 Mg Tablet Yes 20 Today At 9:00PM [facility] Aspirin 81 Mg Tab.chew, 81 Mg Oral Aspirin 81 Mg Tab.chew, 81 Mg Oral 2018-02-14 00:00:00 No 81 Daily [facility] Vital Signs Vital Name Observation Time Observation Value Comments Source BP Systolic 2019-08-18 10:15:00 134 mm[Hg] [facility] BP Diastolic 2019-08-18 10:15:00 60 mm[Hg] [facility] Heart Rate 2019-08-18 10:15:00 66 /min [facility] Weight 2019-07-14 10:29:00 96.4375 [lb_av] [facility] Body Mass Index Calculated 2019-07-14 10:29:00 18.83 kg/m2 [facility] Height 2019-04-23 13:17:00 60 [in_us] [facility] Weight 2019-04-23 13:17:00 95.25 [lb_av] [facility] Body Mass Index Calculated 2019-04-23 13:17:00 18.6 kg/m2 [facility] Height 2019-04-09 10:29:00 60 [in_us] [facility] Weight 2019-04-09 10:29:00 95.25 [lb_av] [facility] Body Mass Index Calculated 2019-04-09 10:29:00 18.6 kg/m2 [facility] Height 2019-04-09 10:26:00 60 [in_us] [facility] Weight 2019-04-09 10:26:00 95.25 [lb_av] [facility] Body Mass Index Calculated 2019-04-09 10:26:00 18.6 kg/m2 [facility] Procedures Procedure Date / Time Performed Performing Clinician [facility] e Computed tomography of abdomen and pelvis without then with contrast 2018-02-21 00:00:00 DANNY [facility] Computed tomography of chest with contrast 2018-02-19 00:00:00 Oj BANUELOS [facility] Laparoscopic colectomy 2018-02-17 00:00:00 ERROL GRIMALDO [facility] EGD with biopsy 2018-02-16 00:00:00 [facility] Colonoscopy with biopsy 2018-02-16 00:00:00 [facility] Computed tomography of abdomen and pelvis with contrast 2017 00:00:00 [facility] X-ray of chest, two views 2018-02-13 00:00:00 HANNAH GALEAS [facility] History of Hysterectomy [facility] History of Ear Surgery [facility] History of Heart Surgery [facility] History of Cholecystotomy [facility] Encounters Start Date/Time End Date/Time Encounter Type Admission Type Attendi [facility] Emergency Department Facility Care Department Encounter ID Source 2019-08-18 09:45:00 2019-08-18 09:45:00 Appointment; KESHAWN FIGUEROA M.D. BYRD, MICHAEL, M.D. [facility] [id number] [facility] 2019-07-14 10:15:00 2019-07-14 10:15:00 Appointment; KESHAWN FIGUEROA M.D. BYRD, MICHAEL, M.D. [facility] Otorhinolaryngology [facility] [id number] [facility] 2019-04-23 13:00:00 2019-04-23 13:00:00 Appointment; QUYNH PAGE M.D. SIMMONS, JOHN, M.D. [facility] [id number] [facility] 2019-04-09 10:30:00 2019-04-09 10:30:00 Appointment; QUYNH PAGE M.D. SIMMONS, JOHN, M.D. [facility] Otorhinolaryngology [facility] [id number] [facility] 2018-02-14 12:09:00 2018-02-25 14:05:00 Discharged Inpatient ER RADHA DELGADO [facility] [id number] [facility] Results Test Description Test Time Test Comments Results Result Comments Source CHEST SINGLE (PORTABLE) 2020-08-11 04:54:00 [facility] [address] [place] [address] Patient Name: ALBERT BUSTAMANTE MR #: [id number] : 1935 Age/Sex: 84/F Req #: [id number] Adm Physician: Ordered by: KESHAWN THOMAS MD Report #: [id number] Location: ER Room/Bed: Procedure: [id number] DX/CHEST SINGLE (PORTABLE) Exam Date: Exam Time: REPORT STATUS: Signed EXAMINATION: CHEST SINGLE (PORTABLE) INDICATION: CHEST PAIN COMPARISON: Chest CT dated 02/19/2018. Chest radiograph dated 02/13/2018. FINDINGS: Heart is not enlarged. Pulmonary vasculature is within normal limits. Cardiac stents. Stable appearance of the left base which correlates with epicardial fat-pad on prior CT. No consolidation. No pleural effusion. No pneumothorax. Cholecystectomy clips. IMPRESSION: No acute thoracic radiographic abnormality. Signed by: Radha Albarado MD on 08/11/2020 4:59 AM Dictated By: RADHA ALBARADO MD 8 Transcribed By: HELGA on 08/11/20458 COPY TO: KESHAWN THOMAS MD URINALYSIS COMPLETE 2019-11-23 13:08:00 Test Item UA COLOR (test code = COLU) YELLOW YELLOW UA APPEARANCE (test code = APPU) HAZY CLEAR A UA GLUCOSE DIPSTICK (test code = DGLUU) norm mg/dL NEGATIVE UA BILIRUBIN DIPSTICK (test code = BILU) NEGATIVE mg/dL NEGATIVE UA KETONE DIPSTICK (test code = KETU) neg mg/dL NEGATIVE UA SPECIFIC GRAVITY (test code = SGU) 1.020 1.001-1.035 UA BLOOD DIPSTICK (test code = MARCELINO) 10 (Trace) Grupo/uL NEGATIVE A UA PH DIPSTICK (test code = HERMINIO) 5.0 5.0-8.0 UA PROTEIN DIPSTICK (test code = PROU) 15 (TRACE) mg/dL Neg-15 A UA UROBILINIOGEN DIPSTICK (test code = URO) norm mg/dL 0.0-0.2 UA NITRITE DIPSTICK (test code = ARAMIS) NEGATIVE NEGATIVE UA LEUKOCYTE ESTERASE DIPSTICK (test code = LEUU) 500 Joie/uL (3+) u L NEGATIVE A UA WBC (test code = WBCU) TNTC per HPF 0-5 A UA RBC (test code = RBCU) 0-3 per HPF 0-5 UA EPITHELIAL CELLS (test code = EPIU) RARE per HPF Few UA BACTERIA (test code = BACU) FEW per HPF NONE Urine Source? Clean CatchURINALYSIS [id number] 12:35:00* Test Item Value Reference Range Interpretation Comments UA COLOR (test code = COLU) YELLOW YELLOW UA APPEARANCE (test code = APPU) HAZY CLEAR A UA GLUCOSE DIPSTICK (test code = DGLUU) norm mg/dL NEGATIVE UA BILIRUBIN DIPSTICK (test code = BILU) NEGATIVE mg/dL NEGATIVE UA KETONE DIPSTICK (test code = KETU) neg mg/dL NEGATIVE UA SPECIFIC GRAVITY (test code = SGU) 1.020 1.001-1.035 UA BLOOD DIPSTICK (test code = MARCELINO) 10 (Trace) Grupo/uL NEGATIVE A UA PH DIPSTICK (test code = HERMINIO) 5.0 5.0-8.0 UA PROTEIN DIPSTICK (test code = PROU) 15 (TRACE) mg/dL Neg-15 A UA UROBILINIOGEN DIPSTICK (test code = URO) norm mg/dL 0.0-0.2 UA NITRITE DIPSTICK (test code = ARAMIS) NEGATIVE NEGATIVE UA LEUKOCYTE ESTERASE DIPSTICK (test code = LEUU) 500 Joie/uL (3+) u L NEGATIVE A UA WBC (test code = WBCU) per HPF 0-5 UA RBC (test code = RBCU) per HPF 0-5 UA EPITHELIAL CELLS (test code = EPIU) per HPF Few UA BACTERIA (test code = BACU) per HPF NONE Urine Source? Clean CatchSCR MAMM BILATERAL KARAN CAD [id number] 14:45:33 - SCR MAMM BILATERAL KARAN CAD DIGITALBILATERAL DIGITAL SCREENING MAMMOGRAM 3D/2D WITH CAD: 11/05/2019CLINICAL: Asymptomatic. Digital breast tomosynthesis was performed in addition to routine CC and MLO views. Current mammographic images were evaluated by either a [employer] M-Vu or a [employer] ImageChecker CAD (computer a ided detection system). Comparison is made to exams dated 10/22/2017 mammogram , 03/05/2017 mammogram, 03/05/2017 ultrasound biopsy, 03/05/2017 ultrasound, 017 ultrasound, and 01/08/2017 mammogram - [facility]-. There are scattered fibroglandular tissues in both breasts. There is a biopsy clip in th e right breast. No suspicious mass, architectural distortion, malignant type ca lcification, or lymph node abnormality detected. Breast architecture is stable compared to prior exams.IMPRESSION: NEGATIVEThere is no mammographic evidence of malignancy. Resume annual screening mammography in one year. Chau napoles M.D. ss/penrad:11/05/2019 14:45:33 Entry: cl - 11/05/2019 14:45: 33Imaging Technologist: Moni Jacobsen FW, [facility]-letter sent: B IRADS 1-2 Normal Mammogram BI-RADS: 1 NegativeSCR MAMM BILATERAL KARAN CAD [id number] 08:59:11 - SCR MAMM BILATERAL KARAN CAD DIGITALBILATERAL DIGITAL SCREENING MAMMOGRAM 3D/2D WITH CAD: 10/15/2018CLINICAL: Asymptomatic. Digital breast tomosynthesis was performed in addition to routine CC and MLO views. Current mammographic images were evaluated by either a [employer] M-Vu or a [employer] ImageChecker CAD (computer aided detection system). Comparison is made to exams dated 10/22/2017 mammogram, 03/05/2017 mammogram, and 02/18/2017 mammogram - [facility]-. There are scattered fibroglandular tissues in both breasts. There is a biopsy clip in the right breast. No suspicious mass, architectural distortion, malignant type calcification, or lymph node abnormality detected. Breast architecture is stable compared to prior exams.IMPRESSION: BENIGNThere is no mammographic evidence of malignancy. Resume annual screening mammography in one year. Almas santana/penrad:10/15/2018 08:59:11 Biology Intern: Shama Messer FW, [facility]-FWletter sent: BIRADS 1-2 Normal Mammogram BI-RADS: 2 BenignSodium [id number] 07:13:00* Test Item Value Reference Range Interpretation Comments Sodium Level (test code = 2951-2) 138 136-145 [facility] Oypuw7199-61-00 07:13:00* Test Item Value Reference Range Interpretation Comments Potassium Level (test code = 2823-3) 4.0 3.5-5.1 [facility] SystemChloride [id number] 07:13:00* Test Item Value Reference Range Interpretation Comments Chloride Level (test code = 2075-0) 106 98-107 [facility] SystemCarbon Dioxide [id number] 07:13:00* Test Item Value Reference Range Interpretation Comments Carbon Dioxide Level (test code = 2028-9) 25 22-29 [facility] SystemAnion [id number] 07:13:00* Test Item Value Reference Range Interpretation Comments Anion Gap (test code = 48630-5) 11.0 8-16 [facility] SystemBlood Urea [id number] 07:13:00* Test Item Value Reference Range Interpretation Comments Blood Urea Nitrogen (test code = 3094-0) 10 7-26 [facility] SystemCreatinine2018-04-03 07:13:00* Test Item Value Reference Range Interpretation Comments Creatinine (test code = 2160-0) 0.52 0.57-1.11 L [facility] SystemBUN/Creatinine [id number] 07:13:00* Test Item Value Reference Range Interpretation Comments BUN/Creatinine Ratio (test code = 3097-3) 19 6-25 [facility] SystemEstimat Glomerular Filtration Rate 2018-02-25 07:13:00* Test Item Value Reference Range Interpretation Comments Estimat Glomerular Filtration Rate (test code = 32710-7) 60- >60 Ranges were taken from the National Kidney Disease Education Program and the [facility] literature.Reference ranges:60 or greater: Kuburk08-04 ( for 3 consecutive months): Chronic kidney disease 15 or less: Kidney failureDeTar Healthcare SystemGlucose Kqtbm0253-98-18 07:13:00* Test Item Value Reference Range Interpretation Comments Glucose Level (test code = CAE3528) 95 74-118 [facility] SystemCalcium Mntft7745-94-44 07:13:00* Test Item Value Reference Range Interpretation Comments Calcium Level (test code = 13267-3) 8.4 8.4-10.2 [facility] SystemWhite Blood Eadrh1241-65-70 06:53:00* Test Item Value Reference Range Interpretation Comments White Blood Count (test code = 6690-2) 8.11 4.8-10.8 [facility] SystemRed Blood Mnbow8077-84-56 06:53:00* Test Item Value Reference Range Interpretation Comments Red Blood Count (test code = 789-8) 4.97 3.6-5.1 [facility] SystemHemoglobin2018-04-03 06:53:00* Test Item Value Reference Range Interpretation Comments Hemoglobin (test code = 80857-9) 11.7 12.0-16.0 L [facility] SystemHematocrit2018-04-03 06:53:00* Test Item Value Reference Range Interpretation Comments Hematocrit (test code = 4544-3) 37.3 34.2-44.1 [facility] SystemMean Corpuscular Sbleys2634-32-37 06:53:00* Test Item Value Reference Range Interpretation Comments Mean Corpuscular Volume (test code = 787-2) 75.1 81-99 L [facility] SystemMean Corpuscular Kgnloyrols7314-57-69 06:53:00* Test Item Value Reference Range Interpretation Comments Mean Corpuscular Hemoglobin (test code = 785-6) 23.5 28-32 L [facility] SystemMean Corpuscular Hemoglobin Concent 2018-02-25 06:53:00* Test Item Value Reference Range Interpretation Comments Mean Corpuscular Hemoglobin Concent (test code = 786-4) 31.4 31-35 [facility] SystemPlatelet Gqhkv5603-54-27 06:53:00* Test Item Value Reference Range Interpretation Comments Platelet Count (test code = 777-3) 345 140-360 [facility] SystemNeutrophils (%) (Auto)2018-02-25 06:53:00 * Test Item Value Reference Range Interpretation Comments Neutrophils (%) (Auto) (test code = 71269-6) 74.0 38.7-80.0 [facility] SystemLymphocytes (%) (Auto)2018-02-25 06:53:00 * Test Item Value Reference Range Interpretation Comments Lymphocytes (%) (Auto) (test code = 736-9) 13.4 18.0-39.1 L [facility] SystemMonocytes (%) (Auto)2018-02-25 06:53:00* Test Item Value Reference Range Interpretation Comments Monocytes (%) (Auto) (test code = 5905-5) 7.8 4.4-11.3 [facility] SystemEosinophils (%) (Auto)2018-02-25 06:53:00 * Test Item Value Reference Range Interpretation Comments Eosinophils (%) (Auto) (test code = 713-8) 2.6 0.0-6.0 [facility] SystemBasophils (%) (Auto)2018-02-25 06:53:00* Test Item Value Reference Range Interpretation Comments Basophils (%) (Auto) (test code = 706-2) 0.7 0.0-1.0 [facility] SystemIM GRANULOCYTES %2018-02-25 06:53:00* Test Item Value Reference Range Interpretation Comments IM GRANULOCYTES % (test code = IM GRANULOCYTES %) 1.5 0.0- 1.0 H [facility] SystemNeutrophils # (Auto)2018-02-25 06:53:00* Test Item Value Reference Range Interpretation Comments Neutrophils # (Auto) (test code = 751-8) 6.0 2.1-6.9 [facility] SystemLymphocytes # (Auto)2018-02-25 06:53:00* Test Item Value Reference Range Interpretation Comments Lymphocytes # (Auto) (test code = 87134-0) 1.1 1.0-3.2 [facility] SystemMonocytes # (Auto)2018-02-25 06:53:00* Test Item Value Reference Range Interpretation Comments Monocytes # (Auto) (test code = 742-7) 0.6 0.2-0.8 [facility] SystemEosinophils # (Auto)2018-02-25 06:53:00* Test Item Value Reference Range Interpretation Comments Eosinophils # (Auto) (test code = 711-2) 0.2 0.0-0.4 [facility] SystemBasophils # (Auto)2018-02-25 06:53:00* Test Item Value Reference Range Interpretation Comments Basophils # (Auto) (test code = 704-7) 0.1 0.0-0.1 [facility] SystemAbsolute Immature Granulocyte (auto 2018-02-25 06:53:00* Test Item Value Reference Range Interpretation Comments Absolute Immature Granulocyte (auto (marquis t code = Absolute Immature Granulocyte (auto) 0.12 0-0.1 H [facility] SystemPlatelet Kugnhtwo8209-84-87 14:06:00* Test Item Value Reference Range Interpretation Comments Platelet Estimate (test code = 96848-9) ADEQUATE [facility] SystemPlatelet Morphology Mamzyig0379-85-90 14:06:00* Test Item Value Reference Range Interpretation Comments Platelet Morphology Comment (test code = 59054-8) NORMAL [facility] SystemPoikilocytosis2018-04-01 14:06:00* Test Item Value Reference Range Interpretation Comments Poikilocytosis (test code = 779-9) MARKED [facility] SystemAnisocytosis2018-04-01 14:06:00* Test Item Value Reference Range Interpretation Comments Anisocytosis (test code = 702-1) MARKED [facility] SystemMicrocytosis2018-04-01 14:06:00* Test Item Value Reference Range Interpretation Comments Microcytosis (test code = 741-9) SLIG [facility] SystemMacrocytosis2018-04-01 14:06:00* Test Item Value Reference Range Interpretation Comments Macrocytosis (test code = 738-5) MODERATE [facility] SystemRed Cell Morphology Ynvnqqy0402-60-18 14:06:00* Test Item Value Reference Range Interpretation Comments Red Cell Morphology Comment (test code = 6742-1) ABNORMAL [facility] SystemClostridium Difficile Toxin A & B 2018-02-22 15:00:00* Test Item Value Reference Range Interpretation Comments Clostridium Difficile Toxin A & B (test code = 476195718) NEGATIVE NEGATIVE Testing on stool aspirate specimens is outside sr solutions consultant claims since specime n type not validated on this assay.[facility] Differential Total Cells Ypnzytx3129-66-61 10:33:00* Test Item Value Reference Range Interpretation Comments Differential Total Cells Counted (test code = Differen tial Total Cells Counted) 100 [facility] SystemNeutrophils % (Manual)2018-02-22 10:33:00 * Test Item Value Reference Range Interpretation Comments Neutrophils % (Manual) (test code = 34655-0) 77 40-74 H [facility] SystemBand Neutrophils %2018-02-22 10:33:00* Test Item Value Reference Range Interpretation Comments Band Neutrophils % (test code = 764-1) 1 [facility] SystemLymphocytes % (Manual)2018-02-22 10:33:00 * Test Item Value Reference Range Interpretation Comments Lymphocytes % (Manual) (test code = 737-7) 17 19-48 L [facility] SystemMonocytes % (Manual)2018-02-22 10:33:00* Test Item Value Reference Range Interpretation Comments Monocytes % (Manual) (test code = 744-3) 2 3.4-9.0 L [facility] SystemEosinophils % (Manual)2018-02-22 10:33:00 * Test Item Value Reference Range Interpretation Comments Eosinophils % (Manual) (test code = 714-6) 3 0-7 [facility] SystemHypochromasia2018-03-31 10:33:00* Test Item Value Reference Range Interpretation Comments Hypochromasia (test code = 728-6) SLIGHT [facility] SystemRed Cell Distribution Wotwe4602-44-57 06:23:00* Test Item Value Reference Range Interpretation Comments Red Cell Distribution Width (test code = 98916-0) 29.1 11.7 -14.4 H [facility] SystemBedside Vlyyvnq3039-47-09 08:30:00* Test Item Value Reference Range Interpretation Comments Bedside Glucose (test code = 30594-7) 70 70-120 Meter ID: [id number] [facility]arcinoembryonic Rdbkwxe3784-41-05 06:07:00* Test Item Value Reference Range Interpretation Comments Carcinoembryonic Antigen (test code = 2039-6) 7.5 0.0-4.7 H Jordan ECLIA methodology Nonsmokers <3.9 Smokers <5.6Performed at: - [facility] [id number] Director: Abel Bacon MD, Phone: [phone] Healthcare SystemTotal Ptajtpbqa8337-24-58 07:53:00* Test Item Value Reference Range Interpretation Comments Total Bilirubin (test code = 1975-2) 1.1 0.2-1.2 [facility] SystemAspartate Amino Transf (AST/SGOT) 2018-02-17 07:53:00* Test Item Value Reference Range Interpretation Comments Aspartate Amino Transf (AST/SGOT) (test code = Aspartate Amino Transf (AST/SGOT)) 14 5-34 [facility] SystemAlanine Aminotransferase (ALT/SGPT) 2018-02-17 07:53:00* Test Item Value Reference Range Interpretation Comments Alanine Aminotransferase (ALT/SGPT) (test code = 1742-6) 8 0-55 [facility] Eocssrb6181-42-76 07:53:00* Test Item Value Reference Range Interpretation Comments Total Protein (test code = 2885-2) 5.6 6.5-8.1 L [facility]2018-03-[facility] 07:53:00* Test Item Value Reference Range Interpretation Comments Albumin (test code = 1751-7) 2.9 3.5-5.0 L [facility]ulin2018-03-26 07:53:00* Test Item Value Reference Range Interpretation Comments Globulin (test code = 53887-4) 2.7 2.3-3.5 [facility]/Globulin Tnlwv9871-52-35 07:53:00 * Test Item Value Reference Range Interpretation Comments Albumin/Globulin Ratio (test code = 1759-0) 1.1 0.8-2.0 [facility] SystemAlkaline Anmnxzdrzos3981-45-68 07:53:00* Test Item Value Reference Range Interpretation Comments Alkaline Phosphatase (test code = 6768-6) 62 40-150 [facility] SystemProthrombin Ljax3225-21-45 07:25:00* Test Item Value Reference Range Interpretation Comments Prothrombin Time (test code = 5902-2) 13.7 11.9-14.5 [facility] SystemProthromb Time International Ratio 2018-02-17 07:25:00* Test Item Value Reference Range Interpretation Comments Prothromb Time International Ratio (test code = 6301-6) 1.14 Oral Anticoagulant Therapy INR Values:1. Low Intensity Therapy 1.5 - 2.02 . Moderate Intensity Therapy 2.0 - 3.03. High Intensity Therapy(1) 2.5 - 3. 54. High Intensity Therapy(2) 3.0 - 4.05. Panic Value INR > 5.0 [facility] Partial Thromboplast Time 2018-02-17 07:25:00* Test Item Value Reference Range Interpretation Comments Activated Partial Thromboplast Time (test code = 24319-5) 28.3 23.8-35.5 [facility] 10:22:00* Test Item Value Reference Range Interpretation Comments Stomatocytes (test code = 00265-0) SLIGHT [facility] SystemElliptocytes2018-03-24 10:22:00* Test Item Value Reference Range Interpretation Comments Elliptocytes (test code = 79198-3) SLIGHT [facility] Occult Mfzkd7907-42-54 18:51:00* Test Item Value Reference Range Interpretation Comments Stool Occult Blood (test code = 2335-8) POSITIVE NEGATIVE H [facility] SystemVitamin B12 Buwvo2064-42-94 13:02:00* Test Item Value Reference Range Interpretation Comments Vitamin B12 Level (test code = 24345-5) 218 213-816 [facility]2018-03-23 13:02:00* Test Item Value Reference Range Interpretation Comments Folate (test code = 2284-8) 16.7 7.0-15.4 H [facility] SystemThyroid Stimulating Hormone (TSH) 2018-02-14 12:49:00* Test Item Value Reference Range Interpretation Comments Thyroid Stimulating Hormone (TSH) (test code = 48589-9) 1.130 0.350-4.940 [facility] SystemIron Mwkxi8090-46-52 12:27:00* Test Item Value Reference Range Interpretation Comments Iron Level (test code = 2498-4) 20 50-170 L [facility] SystemTotal Iron Binding Xktvbpnh1633-71-41 12:27:00* Test Item Value Reference Range Interpretation Comments Total Iron Binding Capacity (test code = 2500-7) 508 261-4 78 H [facility] SystemPercent Iron Xpttdmebnw2307-05-87 12:27:00* Test Item Value Reference Range Interpretation Comments Percent Iron Saturation (test code = 2502-3) 4 15-50 L [facility] SystemTransferrin2018-03-23 12:27:00* Test Item Value Reference Range Interpretation Comments Transferrin (test code = 3034-6) 363 180-382 [facility] HKW4288-88-47 21:10:00* Test Item Value Reference Range Interpretation Comments Urine WBC (test code = 5821-4) 6-10 0-5 H [facility] XQM7215-22-05 21:10:00* Test Item Value Reference Range Interpretation Comments Urine RBC (test code = 82933-3) NONE 0-5 [facility] Pofoxmub5992-37-75 21:10:00* Test Item Value Reference Range Interpretation Comments Urine Bacteria (test code = 16645-2) MODERATE NONE H [facility] Epithelial Qhxdv1042-97-20 21:10:00 * Test Item Value Reference Range Interpretation Comments Urine Epithelial Cells (test code = 63275-2) MANY NONE [facility] Fettb0506-00-56 20:56:00* Test Item Value Reference Range Interpretation Comments Urine Color (test code = 5778-6) YELLOW YELLOW [facility] Nisnnep6637-05-20 20:56:00* Test Item Value Reference Range Interpretation Comments Urine Clarity (test code = 46269-9) SL CLOUDY CLEAR [facility] Specific Xqiewsk2684-22-78 20:56:00 * Test Item Value Reference Range Interpretation Comments Urine Specific [place] (test code = 5811-5) 1.015 1.010-1.02 5 [facility] uU0357-82-79 20:56:00* Test Item Value Reference Range Interpretation Comments Urine pH (test code = 83198-1) 7 5-7 [facility] Leukocyte Laltxgzz8122-52-14 20:56:00* Test Item Value Reference Range Interpretation Comments Urine Leukocyte Esterase (test code = 5799-2) 2+ NEGATIVE H [facility] Ijxynyq1853-08-46 20:56:00* Test Item Value Reference Range Interpretation Comments Urine Nitrite (test code = 03803-5) NEGATIVE NEGATIVE [facility] Sxpmrop1473-45-66 20:56:00* Test Item Value Reference Range Interpretation Comments Urine Protein (test code = 5804-0) NEGATIVE NEGATIVE [facility] Glucose (UA)2018-02-13 20:56:00* Test Item Value Reference Range Interpretation Comments Urine Glucose (UA) (test code = 2349-9) NEGATIVE NEGATIVE [facility] Wmiespt8362-63-33 20:56:00* Test Item Value Reference Range Interpretation Comments Urine Ketones (test code = 27609-0) NEGATIVE NEGATIVE [facility] Uyluztxbdysw9798-78-43 20:56:00* Test Item Value Reference Range Interpretation Comments Urine Urobilinogen (test code = 48312-0) 1 0.2-1 [facility] Ngrbwjeeq3120-91-98 20:56:00* Test Item Value Reference Range Interpretation Comments Urine Bilirubin (test code = 1978-6) NEGATIVE NEGATIVE [facility] Dufbz1242-78-64 20:56:00* Test Item Value Reference Range Interpretation Comments Urine Blood (test code = 41229-0) NEGATIVE NEGATIVE [facility] SystemMagnesium Ijdri0902-89-51 20:31:00* Test Item Value Reference Range Interpretation Comments Magnesium Level (test code = 76415-3) 2.0 1.3-2.1 [facility] SystemCreatine Kinase EO0150-52-58 20:30:00* Test Item Value Reference Range Interpretation Comments Creatine Kinase MB (test code = 29446-7) 0.70 0-5.0 [facility] SystemTroponin B0067-77-80 20:30:00* Test Item Value Reference Range Interpretation Comments Troponin I (test code = BIO8410) 0.002 0-0.300 [facility] SystemCreat[facility] Otwjss6587-58-01 20:23:00* Test Item Value Reference Range Interpretation Comments Creatine Kinase (test code = 2157-6) 60 29-168 [facility] SystemCT [facility]LVIS [facility] [address] [address] Patient Name: ALBERT BUSTAMANTE MR #: [id number] : 1935 Age/Sex: 82/F Req #: [id number] Adm Physician: RADHA EDLGADO MD Ordered by: RADHA DELGADO MD Report #: [id number] Location: MED/SURG2 Room/Bed: [facility] Procedure: [id number] CT/CT ABD OMEN/PELVIS WOW Exam Date: 02/21/18 Exam Time: 1300 REPORT STATUS: Signed PROCEDURE: CT ABDOMEN T PELVIS W/WO CONTRAST TECHNIQUE: The abdomen and pelvis were scanned utilizing a multidetector helical scanner from the diaphragm to the lesser trochanter before and after the IV administration of 100 cc of Isovue 370. Coronal and sagittal multi planar reformations were obtained. COMPARISON: None. INDICATIONS: ANEMIA, ADRENAL AND LIVER LESION FINDINGS: LOWER THORAX: Small pleural e ffusions and adjacent lower lobe atelectasis. HEPATOBILIARY: Left hepat ic 1.1 cm cyst with tiny punctate calcification. No suspicious focal hepatic lesions. No biliary ductal dilatation. SPLEEN: No splenomegaly. PANCREAS : No focal masses or ductal dilatation. ADRENALS: Right adrenal 1.3 cm and left adrenal 0.9 cm nodules have densities on noncontrast CT which likely re flect lipid rich adenomas. The right nodule has a washout of 61% compatible w ith an adenoma, and the left nodule has a washout of 24% which is indetermina te. Evaluation is somewhat limited as there is hyperdensity in the right renal pelvis and renal cortices which may be related to test bolus injection. KIDNEYS/URETERS: No hydronephrosis, stones, or solid mass lesions. A righ t superior pole 0.9 cm hypodensity is indeterminate. PELVIC ORGANS/BLADDER: F oley catheter in place. Otherwise, unremarkable. PERITONEUM / RETROPERI TONEUM: Small amount of fluid in the left abdomen may represent complex fluid such as hemorrhage from recent surgery. Small amount of likely post-operativ e free air. No evidence of active contrast extravasation on arterial phase wi thin the visualized portions of this hyperdense fluid. This fluid increases i n density between the arterial phase (series 5 image 80) measuring 22 HU to 5 4 HU (series 8 image 90). LYMPH NODES: No lymphadenopathy. VESSELS: Repl aced left hepatic artery arises from the left gastric artery. Scattered ather osclerotic calcifications. GI TRACT: No distention or wall thickening. Pos tsurgical changes related to right hemicolectomy with ileal colonic anastomos is. Multiple dilated loops of small bowel without transition which gradually tapers to distal ileum likely related to ileus. Enteric contrast is noted in the colon. BONES AND SOFT TISSUES: Midline laparotomy scar and multiple skin vadim. Mild anasarca. IMPRESSION: 1. Status post right colon ic resection and ileocolonic anastomosis. 2. Hyperdense fluid in the left abdo men may represent hemorrhage from recent surgery. No evidence of active arter ial contrast extravasation within the visualized portions of this hyperdense fluid. However, increased density of this fluid between the arterial phase an d the 15 minute delayed phase may reflect a slow active bleed/oozing or cl otting. Consider serial hemoglobin and hematocrit and follow up CT in the se tting of worsening anemia. 3. Multiple dilated loops of small bowel which grad ually tapers to the distal ileum likely related to ileus. 4. Bilateral adr enal nodules with density on the noncontrast phase compatible with lipid rich adenomas. Adrenal washout of the right adrenal nodule is concordant with an adenoma. Left adrenal washout indicates the nodule is indeterminate. Given s uggestion of test contrast bolus prior to acquisition of the non-contrast pha se (contrast present in the urinary collecting system), evaluation is limited . Recommend follow up CT or MRI adrenal mass protocol on an outpatient bas is. 5. Left hepatic cyst. No suspicious hepatic lesions. 6. Small pleural effusions, anasarca, and ascites. Small amount of likely post-operative pneum operitoneum. 1. Findings discussed with Dr. Delgado on 02/21/2018 at 1640 hrs. Dictated by: Haider Liu M.D. on 02/21/2018 at 14:47 El ectronically approved by: Haider Liu M.D. on 02/21/2018 at 14:47 Dictated By: HAIDER LIU MD 1447 Transcribed By: JAQUI on 02/21/18 1447 COPY TO: RADHA DELGADO MD ABDOMEN-1VIEW (KUB) [address] [address] Patient Name: ALBERT BUSTAMANTE MR #: [id number] : 1935 Age/Sex: 82/F Req #: [id number] Adm Physician: RADHA DELGADO MD Ordered by: MARCO GUERRERO MD Report #: [id number] Location: MED/SURG2 Room/Bed: [facility] Procedure: [id number] DX/ABDOME N-1VIEW (KUB) Exam Date: 02/20/18 Exam Time: 2004 REPORT STATUS: Signed EXAM: Abdomen 1 View INDICATION: COMPARISON: CT dated 02/16/2018 FINDINGS: Nonobstructive bowel gas patter n. Mild pneumoperitoneum, probably postsurgical, evident by Rigler's sign in l eft abdomen. Surgical clips overlying mid abdomen. There is also suture line i n right abdomen. Contrast excretion from prior CT in the bladder. Questionab le retained contrast within bowel in left abdomen. Upper abdomen is excluded from the image. No acute osseous abnormality. IMPRESSION: 1. Very garcia ited single view exam. 2. Nonobstructive bowel gas pattern. 3. Pneumoperit oneum, which is probably postsurgical. Signed by: Dr. Abdulkadir Hilliard MD on 02/20/2018 8:51 PM Dictated By: ABDULKADIR HILLIARD MD 50 Transcribed By: HELGA on 02/20/182050 COPY TO: MARCO GUERRERO MD CT CHEST W [address] [place] [address] Patient Name: ALBERT BUSTAMANTE MR #: [id number] : 1935 Age/Sex: 82/F Req #: [id number] Adm Physician: RADHA DELGADO MD Ordered by: RADHA DELGADO MD Report #: [id number] Location: MED/SURG2 Room/Bed: [facility] Procedure: [id number] CT/CT RYLAN ST W Exam Date: 02/19/18 Exam Time: 2155 T STATUS: Signed EXAM: CT CHEST W DATE: 02/19/2018 8:57 PM INDICATION: Metastasis workup, recent removal tumor in transverse colon, POD 1 COMPARISON: None TECHNIQUE: Multidetector CT scanning of the chest was performed. Coron al and sagittal multiplanar reformations were obtained. IV Contrast: 100 ml Isovue 370/300 FINDINGS: LUNGS AND PLEURA: There are small bilateral pleural effusions with associated lower lobe and scattered lingular and right middle lobe atelectasis. There is an irregular 3.1 cm opacity in the posterior right upper lobe with adjacent small nodules. Nonspecific 4 mm right upper an d middle lobe nodules (series 3 image 16, 60) HEART, MEDIASTINUM, VESSELS : Bilateral thyroid nodules, largest 2.4 cm on the left. Mild cardiomegaly wit h coronary artery and aortic atherosclerotic disease. No suspicious adenopathy . UPPER ABDOMEN: Pneumoperitoneum and mild to moderate visualized free flui d, incompletely assessed, status post recent surgery. Cholecystectomy, right renal cyst, and bilateral adrenal nodules again noted. Stable 9 mm left liver cyst. A 9 mm segment 3 low-density liver lesion (image 102) is more conspicuou s than on prior, which was degraded by motion in this region. Probable right flash fill hemangioma (image 99). MUSCULOSKELETAL: No suspicious findings . IMPRESSION: 1. Small bilateral effusions with scattered atelectasis. 2. Irregular 3.1 cm right upper lobe opacity and adjacent tiny nodules, most likely infectious. Attention on follow-up. 3. Two nonspecific 4 mm right upp er and middle lobe nodules. 4. Left liver subcentimeter low density lesion mos t likely a small metastasis. This is distinct from the left liver cyst. Signed by: Dr Papo Lebron MD on 02/20/2018 12:46 AM Dictated By: PAPO LEBRON MD Tra nscribed By: HELGA on 02/20/1845 COPY TO: RADHA DELGADO MD CT ABDOMEN/PELVIS W [address] [place] [address] Patient Name: ALBERT BUSTAMANTE MR #: [id number] : 1935 Age/Sex: 82/F Req #: [id number] Adm Physician: RADHA DELGADO MD Ordered by: MARCO GUERRERO MD Report #: [id number] Location: MED/SURG Room/Bed: 100 Procedure: [id number] CT/CT ABDO MEN/PELVIS W Exam Date: 02/16/18 Exam Time: 1332 REPORT STATUS: Signed ADDENDUM #1 Addendum: Ques tionable thickening of the sigmoid junction. Proctitis not excluded. Direct vi sualization could be obtained as indicated. Signed by: Dr. Sofía Patino MD on 02/16/2018 2:23 PM ORIGINAL REPORT EXAM: CT Abdomen and Pelvis WITH contrast INDICATION: EGD same day. Abnormal findings. Rul e out metastasis. COMPARISON: None. TECHNIQUE: Abdomen and Pelvis w as scanned utilizing a multidetector helical scanner after administration of I V contrast. Coronal and sagittal reformations were obtained. IV CONTRAST: 100 mL Isovue-370 COMPLICATIONS: None RADI ATION DOSE: Total DLP:155 mGy*cm Estimated effective dose: (DLP x 0.015 x size factor) mSv CTDIvol has been reviewed. It is below the limit s set by the Radiation Protocol Committee (RPC). FINDINGS: Abdomen : Lung Bases: Atelectasis present lung bases. Solid Organs: 9 mm c yst anterior left hepatic lobe. Focal fat attenuation along the falciform liga ment. Cholecystectomy clips are present. There is a 15 mm nodule in the left a drenal gland with indeterminate Hounsfield units of 71. 20 mm right adrenal le denis present with indeterminate Hounsfield units of 81. Hypodensity right kidn ey statistically cyst, but too small to definitively characterize. Pancreas un remarkable. Upper GI Tract: Gastric decompression limits evaluation. No sma ll bowel obstructive changes. Vascularity: Moderate aortoiliac vascular c alcifications with no aneurysm. Lymph Nodes: No suspicious mesenteric or ao rtocaval adenopathy. Other: None. Pelvis: Bladder: Unremar kable. Other: Uterus absent. Colon: Areas of decompression limits eval uation. Questionable wall thickening in the rectal junction. Bones: No ac adilene findings. IMPRESSION: 1. Bilateral indeterminate adrenal lesions . Adrenal mass protocol CT or MRI recommended. 2. If concern is present for metastatic disease in the chest, dedicated CT chest to be recommended. 3. Colonic evaluation limited by decompression. Signed by: Dr. Sofía smith MD on 02/16/2018 1:58 PM Dictated By: SOFÍA PATINO MD Electronical ly Signed By: SOFÍA PATINO MD on 02/16/18 1423 Transcribed By: HELGA on 1358 COPY TO: MARCO GUERRERO MD CHEST 2 VIEWS [address] [place] [address] Patient Name: ALBERT BUSTAMANTE MR #: [id number] : 1935 Age/Sex: 82/F Req #: [id number] Adm Physician: Ordered by: HANNAH GALEAS MD Report #: [id number] Location: ER Room/Bed: Procedure: [id number] DX/CHEST 2 VIEWS Exam Date: Exam Time: REPORT STATUS: Signed EXAM: CHEST 2 VIEWS, PA and lateral INDICATION: Anemia, constipation COMPARISON: None FINDINGS: LINES/TUBES: None LUNGS: No consolidations or edema. Emphys ematous changes. PLEURA: No effusions or pneumothorax. HEART AND MEDIA STINUM: Normal size and contour. BONES AND SOFT TISSUES: No acute findings. Surgical clips right upper quadrant of the abdomen. IMPRESSION: No acu te thoracic abnormality. Signed by: Dr. Tyrese Gatica M.D. on 9:57 PM Dictated By: TYRESE GATICA MD 56 Transcribed By: HELGA on 02/13/182156 COPY TO: HANNAH GALEAS MD ABDOMEN COMP INCL UPR or DECUB [address] [id number] Patient Name: ALBERT BUSTAMANTE MR #: [id number] : 1935 Age/Sex: 82/F Req #: [id number] Adm Physician: Ordered by: HANNAH GALEAS MD Report #: [id number] Location: ER Room/Bed: Procedure: [id number] DX/ABDOMEN COMP INCL UPR or DEC UB Exam Date: Exam Time: REPORT STATUS: Sign ed EXAM: ABDOMEN COMP INCL UPR or DECUB, supine and erect INDICATION: Anem ia, constipation COMPARISON: None FINDINGS: LINES/TUBES: None JAN L PATTERN: No evidence for obstruction. SOFT TISSUES: Surgical clips ri ght upper quadrant of the abdomen. Surgical clips project over the pelvis. Phl eboliths in the pelvis. LUNG BASES: Not included BONES: No acute findi ngs. IMPRESSION: Moderate to large amount of retained stool. No evidence of obstruction. Signed by: Dr. Tyrese Gatica M.D. on 2017 9:58 PM Dictated By: TYRESE GATICA MD 57 Transcribed By: HELGA on 02/13/182157 C OPY TO: HANNAH GALEAS MD
--- OUTSIDE RECORDS SUMMARY | 2020-08-12 10:15 | XMS REPORT | Continuity of Care Document ---
Author Author [facility] t Organization [facility] Address [address] [place] [address] Phone Unavailable Care Team Providers Care Machine Precision Etcher Name Role Phone Airam HILL MD PCP Nabeel THOMAS Attphys Unavailable KESHAWN FIGUEROA M.D. Attphys Unavailable QUYNH PAGE M.D. Attphys Unavailable RADHA DELGADO Attphys Unavailable RADHA DELGADO Admphys Unavailable Payers Payer Name Policy Type Policy Number Effective Date Expiration Date [employer] [id number] 2018 00:00:00 [facility] Problems Condition Name Condition Details Condition Category Status Onset Date Resolution Date Last Treatment Date Treating Clinician Comments Source History of cardiac disorder History of cardiac disorder Problem Resolved [facility] History of glaucoma History of glaucoma Problem Resolved [facility] History of hypertension History of hypertension Problem Resolved [facility] Hypersalivation Hypersalivation Problem Active [facility] 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 [facility] Bilateral impacted cerumen Bilateral impacted cerumen Problem Active [facility] Chronic otitis externa Chronic otitis externa Problem Active [facility] Anemia Anemia Problem Active [facility] Allergies, Adverse Reactions, Alerts Allergy Name Allergy Type Status Severity Reaction(s) Onset Date Inacti ve Date Treating Clinician Comments Source Codeine Allergy to Substance Active 2018-02-13 00:00:00 [facility] codeine DA Active MO 2012-03-07 00:00:00 [facility] Codeine Derivatives drug allergy Active [facility] iodine drug allergy Active [facility] Family History Family Member Diagnosis Comments Start Date Stop Date Source Mother Family history of cardiac disorder [facility] Mother Family history of malignant neoplasm [facility] Social History Smoking Status Start Date Stop Date Source Never smoker [facility] Medications Ordered Medication Name Filled Medication Name Start Date Stop Da te Current Medication? Ordering Clinician Indication Dosage Frequency Signature (SIG) Comments Components Source Fluocinolone Acetonide 0.01 % Otic Oil Fluocinolone Acetonid e 0.01 % Otic Oil 2019-08-18 00:00:00 Yes KESHAWN FIGUEROA M.D. 3 to 4 drops to both ears daily. [facility] Simvastatin 20 MG Oral Tablet Simvastatin 20 MG Oral Tablet Ye s [facility] Plavix 75 MG Oral Tablet Plavix 75 MG Oral Tablet Yes [facility] Pantoprazole Sodium 40 MG Oral Tablet Delayed Release Pantoprazole Sodium 40 MG Oral Tablet Delayed Release Yes [facility] Calcium 600 MG Oral Tablet Calcium 600 MG Oral Tablet Yes [facility] Vitamin B-12 100 MCG Oral Tablet Vitamin B-12 100 MCG Oral Tablet Yes [facility] Centrum Silver TABS Centrum Silver TABS Yes [facility] NIFEdipine CR 30 MG TBCR NIFEdipine CR 30 MG TBCR Yes [facility] Clopidogrel Bisulfate 75 MG Oral Tablet Clopidogrel Bisulfat e 75 MG Oral Tablet Yes [facility] Lumigan 0.03 % SOLN Lumigan 0.03 % SOLN Yes [facility] Combigan 0.2-0.5 % Ophthalmic Solution Combigan 0.2-0.5 % Ophtha lmic Solution Yes [facility] Iron TABS Iron TABS Yes [facility] Acetaminophen 325 Mg Tablet Acetaminophen 325 Mg Tablet Yes 650 Every 6 Hours as needed for Pain [facility] Atenolol 50 Mg Tablet Atenolol 50 Mg Tablet Yes 50 Daily [facility] Cholestyramine (With Sugar) (Questran Packet) 4 Gm Pac ket Cholestyramine (With Sugar) (Questran Packet) 4 Gm Packet Yes 4 E very 6 Hours [facility] Clopidogrel Bisulfate (Plavix) 75 Mg Tablet Clopidogre l Bisulfate (Plavix) 75 Mg Tablet Yes 75 Daily [facility] Cyanocobalamin (Vitamin B-12) 1,000 Mcg Tab Cyanocobal rosas (Vitamin B-12) 1,000 Mcg Tab Yes 1000 Daily [facility] Fe Fumarate/Fa/Mv, Min Comb#15 (Hemocyte Plus Capsule) 1 Each Capsule Fe Fumarate/Fa/Mv, Min Comb#15 (Hemocyte Plus Capsule) 1 Each Capsule Yes Twice A Day [facility] Nifedipine (Nifedipine Er) 30 Mg Tab.er.24 Nifedipine (Nifedipine Er) 30 Mg Tab.er.24 Yes Daily [facility] Ondansetron (Zofran Odt) 4 Mg Tab.rapdis Ondansetron ( Zofran Odt) 4 Mg Tab.rapdis Yes 4 Every 6 Hours C [facility] Pantoprazole Sodium (Protonix) 40 Mg Tablet. Pantopr azole Sodium (Protonix) 40 Mg Tablet. Yes 40 Daily [facility] Simvastatin 20 Mg Tablet Simvastatin 20 Mg Tablet Yes 20 Today At 9:00PM [facility] Aspirin 81 Mg Tab.chew, 81 Mg Oral Aspirin 81 Mg Tab.chew, 81 Mg Oral 2018-02-14 00:00:00 No 81 Daily [facility] Vital Signs Vital Name Observation Time Observation Value Comments Source BP Systolic 2019-08-18 10:15:00 134 mm[Hg] [facility] BP Diastolic 2019-08-18 10:15:00 60 mm[Hg] [facility] Heart Rate 2019-08-18 10:15:00 66 /min [facility] Weight 2019-07-14 10:29:00 96.4375 [lb_av] [facility] Body Mass Index Calculated 2019-07-14 10:29:00 18.83 kg/m2 [facility] Height 2019-04-23 13:17:00 60 [in_us] [facility] Weight 2019-04-23 13:17:00 95.25 [lb_av] [facility] Body Mass Index Calculated 2019-04-23 13:17:00 18.6 kg/m2 [facility] Height 2019-04-09 10:29:00 60 [in_us] [facility] Weight 2019-04-09 10:29:00 95.25 [lb_av] [facility] Body Mass Index Calculated 2019-04-09 10:29:00 18.6 kg/m2 [facility] Height 2019-04-09 10:26:00 60 [in_us] [facility] Weight 2019-04-09 10:26:00 95.25 [lb_av] [facility] Body Mass Index Calculated 2019-04-09 10:26:00 18.6 kg/m2 [facility] Procedures Procedure Date / Time Performed Performing Clinician [facility] Computed tomography of abdomen and pelvis without then with contrast 2018-02-21 00:00:00 DANNY [facility] Computed tomography of chest with contrast 2018-02-19 00:00:00 Oj BANUELOS [facility] Laparoscopic colectomy 2018-02-17 00:00:00 ERROL GRIMALDO [facility] EGD with biopsy 2018-02-16 00:00:00 [facility] Colonoscopy with biopsy 2018-02-16 00:00:00 [facility] Computed tomography of abdomen and pelvis with contrast 2017 00:00:00 [facility] X-ray of chest, two views 2018-02-13 00:00:00 HANNAH GALEAS [facility] History of Hysterectomy [facility] History of Ear Surgery [facility] History of Heart Surgery [facility] History of Cholecystotomy [facility] Encounters Start Date/Time End Date/Time Encounter Type Admission Type Attendi [facility] Care Department Encounter ID Source 2019-08-18 09:45:00 2019-08-18 09:45:00 Appointment; KESHAWN FIGUEROA M.D. BYRD, MICHAEL, M.D. [facility] [id number] [facility] 2019-07-14 10:15:00 2019-07-14 10:15:00 Appointment; KESHAWN FIGUEROA M.D. BYRD, MICHAEL, M.D. [facility] [id number] [facility] 2019-04-23 13:00:00 2019-04-23 13:00:00 Appointment; QUNYH PAGE M.D. SIMMONS, JOHN, M.D. [facility] [id number] [facility] 2019-04-09 10:30:00 2019-04-09 10:30:00 Appointment; QUYNH PAGE M.D. SIMMONS, JOHN, M.D. [facility] [id number] [facility] 2018-02-14 12:09:00 2018-02-25 14:05:00 Discharged Inpatient ER RADHA DELGADO [facility] [id number] [facility] Results Test Description Test Time Test Comments Results Result Comments Source CHEST SINGLE (PORTABLE) 2020-08-11 04:54:00 [facility] [address] [place] [address] Patient Name: ALBERT BUSTAMANTE MR #: [id number] : 1935 Age/Sex: 84/F Req #: [id number] Adm Physician: Ordered by: KESHAWN THOMAS MD Report #: [id number] Location: ER Room/Bed: Procedure: [id number] DX/CHEST SINGLE (PORTABLE) Exam Date: Exam Time: [...] per HPF NONE Urine Source? Clean CatchURINALYSIS [id number] 12:35:00* Test Item Value Reference Range Interpretation [...] Source? Clean CatchSCR MAMM BILATERAL KARAN CAD [id number] 14:45:33 - SCR MAMM BILATERAL KARAN CAD DIGITALBILATERAL DIGITAL SCREENING MAMMOGRAM 3D/2D WITH CAD: 11/05/2019CLINICAL: Asymptomatic. Digital breast tomosynthesis was performed in addition to routine CC and MLO views. Current mammographic images were evaluated by either a Symcat M-Vu or a Weave ImageChecker CAD (computer a ided detection system). Comparison is made to exams dated 10/22/2017 mammogram , 03/05/2017 mammogram, 03/05/2017 ultrasound biopsy, 03/05/2017 ultrasound, 017 ultrasound, and 01/08/2017 mammogram - [facility]-. There are scattered fibroglandular tissues [...] 14:45: 33Imaging Technologist: Moni Jacobsen FW, [facility]-letter sent: B IRADS 1-2 Normal Mammogram BI-RADS: 1 NegativeSCR MAMM BILATERAL KARAN CAD [id number] 08:59:11 - SCR MAMM BILATERAL KARAN CAD DIGITALBILATERAL DIGITAL SCREENING MAMMOGRAM 3D/2D WITH CAD: 10/15/2018CLINICAL: Asymptomatic. Digital breast tomosynthesis was performed in addition to routine CC and MLO views. Current mammographic images were evaluated by either a Symcat M-Vu or a Weave ImageChecker CAD (computer aided detection system). Comparison is made to exams dated 10/22/2017 mammogram, 03/05/2017 mammogram, and 02/18/2017 mammogram - [facility]-. There are scattered fibroglandular tissues in both breasts. There is a biopsy clip in the right breast. No suspicious mass, architectural distortion, malignant type calcification, or lymph node abnormality detected. Breast architecture is stable compared to prior exams.IMPRESSION: BENIGNThere is no mammographic evidence of malignancy. Resume annual screening mammography in one year. Almas santana/penrad:10/15/2018 08:59:11 Restaurant Lead: Shama Messer FW, [facility]-FWletter sent: BIRADS 1-2 Normal Mammogram BI-RADS: 2 BenignSodium [id number] 07:13:00* Test Item Value Reference Range Interpretation Comments Sodium Level (test code = 2951-2) 138 136-145 [facility]Potassium [id number] 07:13:00* Test Item Value Reference Range Interpretation Comments Potassium Level (test code = 2823-3) 4.0 3.5-5.1 [facility]Chloride [id number] 07:13:00* Test Item Value Reference Range Interpretation Comments Chloride Level (test code = 2075-0) 106 98-107 [facility] ResourcesCarbon Dioxide [id number] 07:13:00* Test Item Value Reference Range Interpretation Comments Carbon Dioxide Level (test code = 2028-9) 25 22-29 [facility] ResourcesAnion [id number] 07:13:00* Test Item Value Reference Range Interpretation Comments Anion Gap (test code = 01936-3) 11.0 8-16 [facility]Blood Urea [id number] 07:13:00* Test Item Value Reference Range Interpretation Comments Blood Urea Nitrogen (test code = 3094-0) 10 7-26 [facility] ResourcesCreatinine2018-04-03 07:13:00* Test Item Value Reference Range Interpretation Comments Creatinine (test code = 2160-0) 0.52 0.57-1.11 L [facility]BUN/Creatinine Hktdi7243-08-78 07:13:00* Test Item Value Reference Range Interpretation Comments BUN/Creatinine Ratio (test code = 3097-3) 19 6-25 [facility] ResourcesEstimat Glomerular Filtration Rate 2018-02-25 07:13:00* Test Item Value Reference Range Interpretation Comments Estimat Glomerular Filtration Rate (test code = 55635-7) 60- >60 Ranges were taken from the National Kidney Disease Education Program and the [facility] Kidney Foundation literature.Reference ranges:60 or greater: Tksbdw69-66 ( for 3 consecutive months): Chronic kidney disease 15 or less: Kidney failureJoint [facility] between [facility] and [facility] ResourcesGlucose [id number] 07:13:00* Test Item Value Reference Range Interpretation Comments Glucose Level (test code = ZJF0117) 95 74-118 [facility] ResourcesCalcium Ilwmp4952-26-58 07:13:00* Test Item Value Reference Range Interpretation Comments Calcium Level (test code = 09924-6) 8.4 8.4-10.2 [facility]White Blood Xuqti4496-56-69 06:53:00* Test Item Value Reference Range Interpretation Comments White Blood Count (test code = 6690-2) 8.11 4.8-10.8 [facility] ResourcesRed Blood Owfjx6503-04-94 06:53:00* Test Item Value Reference Range Interpretation Comments Red Blood Count (test code = 789-8) 4.97 3.6-5.1 [facility] ResourcesHemoglobin2018-04-03 06:53:00* Test Item Value Reference Range Interpretation Comments Hemoglobin (test code = 15663-3) 11.7 12.0-16.0 L [facility]Hematocrit2018-04-03 06:53:00* Test Item Value Reference Range Interpretation Comments Hematocrit (test code = 4544-3) 37.3 34.2-44.1 [facility] ResourcesMean Corpuscular Clgglv5006-46-72 06:53:00* Test Item Value Reference Range Interpretation Comments Mean Corpuscular Volume (test code = 787-2) 75.1 81-99 L [facility]Mean Corpuscular Ttbaahubcn9058-30-64 06:53:00* Test Item Value Reference Range Interpretation Comments Mean Corpuscular Hemoglobin (test code = 785-6) 23.5 28-32 L [facility] ResourcesMean Corpuscular Hemoglobin Concent 2018-02-25 06:53:00* Test Item Value Reference Range Interpretation Comments Mean Corpuscular Hemoglobin Concent (test code = 786-4) 31.4 31-35 [facility] ResourcesPlatelet [id number] 06:53:00* Test Item Value Reference Range Interpretation Comments Platelet Count (test code = 777-3) 345 140-360 [facility] ResourcesNeutrophils (%) (Auto)2018-02-25 06:53:00 * Test Item Value Reference Range Interpretation Comments Neutrophils (%) (Auto) (test code = 20143-0) 74.0 38.7-80.0 [facility]Lymphocytes (%) (Auto)2018-02-25 06:53:00 * Test Item Value Reference Range Interpretation Comments Lymphocytes (%) (Auto) (test code = 736-9) 13.4 18.0-39.1 L [facility]Monocytes (%) (Auto)2018-02-25 06:53:00* Test Item Value Reference Range Interpretation Comments Monocytes (%) (Auto) (test code = 5905-5) 7.8 4.4-11.3 [facility]Eosinophils (%) (Auto)2018-02-25 06:53:00 * Test Item Value Reference Range Interpretation Comments Eosinophils (%) (Auto) (test code = 713-8) 2.6 0.0-6.0 [facility]Basophils (%) (Auto)2018-02-25 06:53:00* Test Item Value Reference Range Interpretation Comments Basophils (%) (Auto) (test code = 706-2) 0.7 0.0-1.0 [facility] ResourcesIM GRANULOCYTES %2018-02-25 06:53:00* Test Item Value Reference Range Interpretation Comments IM GRANULOCYTES % (test code = IM GRANULOCYTES %) 1.5 0.0- 1.0 H [facility] ResourcesNeutrophils # (Auto)2018-02-25 06:53:00* Test Item Value Reference Range Interpretation Comments Neutrophils # (Auto) (test code = 751-8) 6.0 2.1-6.9 [facility]Lymphocytes # (Auto)2018-02-25 06:53:00* Test Item Value Reference Range Interpretation Comments Lymphocytes # (Auto) (test code = 11988-0) 1.1 1.0-3.2 [facility]Monocytes # (Auto)2018-02-25 06:53:00* Test Item Value Reference Range Interpretation Comments Monocytes # (Auto) (test code = 742-7) 0.6 0.2-0.8 [facility]Eosinophils # (Auto)2018-02-25 06:53:00* Test Item Value Reference Range Interpretation Comments Eosinophils # (Auto) (test code = 711-2) 0.2 0.0-0.4 [facility]Basophils # (Auto)2018-02-25 06:53:00* Test Item Value Reference Range Interpretation Comments Basophils # (Auto) (test code = 704-7) 0.1 0.0-0.1 [facility] ResourcesAbsolute Immature Granulocyte (auto 2018-02-25 06:53:00* Test Item Value Reference Range Interpretation Comments Absolute Immature Granulocyte (auto (marquis t code = Absolute Immature Granulocyte (auto) 0.12 0-0.1 H [facility] ResourcesPlatelet Qxtlijll5000-07-38 14:06:00* Test Item Value Reference Range Interpretation Comments Platelet Estimate (test code = 88363-1) ADEQUATE [facility] ResourcesPlatelet Morphology Vuymuwv0240-23-79 14:06:00* Test Item Value Reference Range Interpretation Comments Platelet Morphology Comment (test code = 44215-6) NORMAL [facility] ResourcesPoikilocytosis2018-04-01 14:06:00* Test Item Value Reference Range Interpretation Comments Poikilocytosis (test code = 779-9) MARKED [facility] ResourcesAnisocytosis2018-04-01 14:06:00* Test Item Value Reference Range Interpretation Comments Anisocytosis (test code = 702-1) MARKED [facility] ResourcesMicrocytosis2018-04-01 14:06:00* Test Item Value Reference Range Interpretation Comments Microcytosis (test code = 741-9) SLIG [facility] ResourcesMacrocytosis2018-04-01 14:06:00* Test Item Value Reference Range Interpretation Comments Macrocytosis (test code = 738-5) MODERATE [facility] ResourcesRed Cell Morphology Avkynpj4250-57-99 14:06:00* Test Item Value Reference Range Interpretation Comments Red Cell Morphology Comment (test code = 6742-1) ABNORMAL [facility] ResourcesClostridium Difficile Toxin A & B 2018-02-22 15:00:00* Test Item Value Reference Range Interpretation Comments Clostridium Difficile Toxin A & B (test code = 232387766) NEGATIVE NEGATIVE Testing on stool aspirate specimens is outside preform plate maker claims since specime n type not validated on this assay.[facility] Differential Total Cells Nuidaln3869-91-46 10:33:00* Test Item Value Reference Range Interpretation Comments Differential Total Cells Counted (test code = Differen tial Total Cells Counted) 100 [facility] ResourcesNeutrophils % (Manual)2018-02-22 10:33:00 * Test Item Value Reference Range Interpretation Comments Neutrophils % (Manual) (test code = 28382-2) 77 40-74 H [facility] ResourcesBand Neutrophils %2018-02-22 10:33:00* Test Item Value Reference Range Interpretation Comments Band Neutrophils % (test code = 764-1) 1 [facility] ResourcesLymphocytes % (Manual)2018-02-22 10:33:00 * Test Item Value Reference Range Interpretation Comments Lymphocytes % (Manual) (test code = 737-7) 17 19-48 L [facility]Monocytes % (Manual)2018-02-22 10:33:00* Test Item Value Reference Range Interpretation Comments Monocytes % (Manual) (test code = 744-3) 2 3.4-9.0 L [facility] ResourcesEosinophils % (Manual)2018-02-22 10:33:00 * Test Item Value Reference Range Interpretation Comments Eosinophils % (Manual) (test code = 714-6) 3 0-7 [facility] ResourcesHypochromasia2018-03-31 10:33:00* Test Item Value Reference Range Interpretation Comments Hypochromasia (test code = 728-6) SLIGHT [facility] ResourcesRed Cell Distribution Vankn5333-36-85 06:23:00* Test Item Value Reference Range Interpretation Comments Red Cell Distribution Width (test code = 15221-1) 29.1 11.7 -14.4 H [facility] ResourcesBedside Xlolttw7236-62-26 08:30:00* Test Item Value Reference Range Interpretation Comments Bedside Glucose (test code = 94493-8) 70 70-120 Meter ID: [id number] [facility] HospitalCarcinoembryonic Ypxezrz5349-16-97 06:07:00* Test Item Value Reference Range Interpretation Comments Carcinoembryonic Antigen (test code = 2039-6) 7.5 0.0-4.7 H Jordan ECLIA methodology Nonsmokers <3.9 Smokers <5.6Performed at: - [facility] [id number] Director: Abel Bacon MD, Phone: [phone] [facility] ResourcesTotal Hykhgrxmi4703-07-62 07:53:00* Test Item Value Reference Range Interpretation Comments Total Bilirubin (test code = 1975-2) 1.1 0.2-1.2 [facility] ResourcesAspartate Amino Transf (AST/SGOT) 2018-02-17 07:53:00* Test Item Value Reference Range Interpretation Comments Aspartate Amino Transf (AST/SGOT) (test code = Aspartate Amino Transf (AST/SGOT)) 14 5-34 [facility] ResourcesAlanine Aminotransferase (ALT/SGPT) 2018-02-17 07:53:00* Test Item Value Reference Range Interpretation Comments Alanine Aminotransferase (ALT/SGPT) (test code = 1742-6) 8 0-55 [facility] Eaohtgo1859-10-51 07:53:00* Test Item Value Reference Range Interpretation Comments Total Protein (test code = 2885-2) 5.6 6.5-8.1 L [facility] ResourcesAlbumin2018-03-26 07:53:00* Test Item Value Reference Range Interpretation Comments Albumin (test code = 1751-7) 2.9 3.5-5.0 L [facility] ResourcesGlobulin2018-03-26 07:53:00* Test Item Value Reference Range Interpretation Comments Globulin (test code = 84517-5) 2.7 2.3-3.5 [facility] ResourcesAlbumin/Globulin [id number] 07:53:00 * Test Item Value Reference Range Interpretation Comments Albumin/Globulin Ratio (test code = 1759-0) 1.1 0.8-2.0 [facility] ResourcesAlkaline Znwptwonxbu0374-51-99 07:53:00* Test Item Value Reference Range Interpretation Comments Alkaline Phosphatase (test code = 6768-6) 62 40-150 [facility] ResourcesProthrombin Smdl0573-39-96 07:25:00* Test Item Value Reference Range Interpretation Comments Prothrombin Time (test code = 5902-2) 13.7 11.9-14.5 [facility] ResourcesProthromb Time International Ratio 2018-02-17 07:25:00* Test Item Value Reference Range Interpretation Comments Prothromb Time International Ratio (test code = 6301-6) 1.14 Oral Anticoagulant Therapy INR Values:1. Low Intensity Therapy 1.5 - 2.02 . Moderate Intensity Therapy 2.0 - 3.03. High Intensity Therapy(1) 2.5 - 3. 54. High Intensity Therapy(2) 3.0 - 4.05. Panic Value INR > 5.0 [facility] Partial Thromboplast Time 2018-02-17 07:25:00* Test Item Value Reference Range Interpretation Comments Activated Partial Thromboplast Time (test code = 80465-2) 28.3 [facility]35.5 [facility]* Test Item Value Reference Range Interpretation Comments Stomatocytes (test code = 01415-2) SLIGHT [facility] ResourcesElliptocytes2018-03-24 10:22:00* Test Item Value Reference Range Interpretation Comments Elliptocytes (test code = 00965-0) SLIGHT [facility] Bvmkr5218-09-15 18:51:00* Test Item Value Reference Range Interpretation Comments Stool Occult Blood (test code = 2335-8) POSITIVE NEGATIVE H [facility] ResourcesVitamin B12 Rwcau3360-80-84 13:02:00* Test Item Value Reference Range Interpretation Comments Vitamin B12 Level (test code = 60235-0) 218 213-816 [facility] ResourcesFolate2018-03-23 13:02:00* Test Item Value Reference Range Interpretation Comments Folate (test code = 2284-8) 16.7 7.0-15.4 H [facility] ResourcesThyroid Stimulating Hormone (TSH) 2018-02-14 12:49:00* Test Item Value Reference Range Interpretation Comments Thyroid Stimulating Hormone (TSH) (test code = 33852-4) 1.130 0.350-4.940 [facility] ResourcesIron Fbhua8588-61-40 12:27:00* Test Item Value Reference Range Interpretation Comments Iron Level (test code = 2498-4) 20 50-170 L [facility] ResourcesTotal Iron Binding Odhbwonm4258-69-85 12:27:00* Test Item Value Reference Range Interpretation Comments Total Iron Binding Capacity (test code = 2500-7) 508 261-4 78 H [facility] ResourcesPercent Iron Putozifnns9662-90-18 12:27:00* Test Item Value Reference Range Interpretation Comments Percent Iron Saturation (test code = 2502-3) 4 15-50 L [facility] ResourcesTransferrin2018-03-23 12:27:00* Test Item Value Reference Range Interpretation Comments Transferrin (test code = 3034-6) 363 180-382 [facility] ResourcesUrine JDY9752-20-72 21:10:00* Test Item Value Reference Range Interpretation Comments Urine WBC (test code = 5821-4) 6-10 0-5 H [facility] ResourcesUrine WCZ2650-72-79 21:10:00* Test Item Value Reference Range Interpretation Comments Urine RBC (test code = 36693-1) NONE 0-5 [facility] ResourcesUrine Hbdjoghc3850-16-17 21:10:00* Test Item Value Reference Range Interpretation Comments Urine Bacteria (test code = 32470-8) MODERATE NONE H [facility] ResourcesUrine Epithelial Fxgto8760-93-74 21:10:00 * Test Item Value Reference Range Interpretation Comments Urine Epithelial Cells (test code = 19698-0) MANY NONE [facility] ResourcesUrine Gartp4368-24-01 20:56:00* Test Item Value Reference Range Interpretation Comments Urine Color (test code = 5778-6) YELLOW YELLOW [facility] ResourcesUrine Eixjsxf2654-93-31 20:56:00* Test Item Value Reference Range Interpretation Comments Urine Clarity (test code = 64707-2) SL CLOUDY CLEAR [facility] ResourcesUrine Specific Raugvzd9826-05-05 20:56:00 * Test Item Value Reference Range Interpretation Comments Urine Specific Mcgrady (test code = 5811-5) 1.015 1.010-1.02 5 [facility] ResourcesUrine rL2460-36-41 20:56:00* Test Item Value Reference Range Interpretation Comments Urine pH (test code = 92462-2) 7 5-7 [facility] Leukocyte Zawmvwhh1783-68-17 20:56:00* Test Item Value Reference Range Interpretation Comments Urine Leukocyte Esterase (test code = 5799-2) 2+ NEGATIVE H [facility] ResourcesUrine Mjbozua5777-18-75 20:56:00* Test Item Value Reference Range Interpretation Comments Urine Nitrite (test code = 54376-7) NEGATIVE NEGATIVE [facility] ResourcesUrine Nsvowug6784-66-65 20:56:00* Test Item Value Reference Range Interpretation Comments Urine Protein (test code = 5804-0) NEGATIVE NEGATIVE [facility] ResourcesUrine Glucose (UA)2018-02-13 20:56:00* Test Item Value Reference Range Interpretation Comments Urine Glucose (UA) (test code = 2349-9) NEGATIVE NEGATIVE [facility] ResourcesUrine Iayacvz1022-08-55 20:56:00* Test Item Value Reference Range Interpretation Comments Urine Ketones (test code = 69065-4) NEGATIVE NEGATIVE [facility] ResourcesUrine Glrmdaiwgvxt1664-36-06 20:56:00* Test Item Value Reference Range Interpretation Comments Urine Urobilinogen (test code = 01698-4) 1 0.2-1 [facility] ResourcesUrine Eumvghqns7670-59-47 20:56:00* Test Item Value Reference Range Interpretation Comments Urine Bilirubin (test code = 1978-6) NEGATIVE NEGATIVE [facility] ResourcesUrine Btghi1296-94-24 20:56:00* Test Item Value Reference Range Interpretation Comments Urine Blood (test code = 16652-1) NEGATIVE NEGATIVE [facility] ResourcesMagnesium Vwxpv3424-20-08 20:31:00* Test Item Value Reference Range Interpretation Comments Magnesium Level (test code = 40446-9) 2.0 1.3-2.1 [facility] ResourcesCreatine Kinase ZI5496-53-36 20:30:00* Test Item Value Reference Range Interpretation Comments Creatine Kinase MB (test code = 83042-4) 0.70 0-5.0 [facility] ResourcesTroponin L9558-80-87 20:30:00* Test Item Value Reference Range Interpretation Comments Troponin I (test code = THI6288) 0.002 0-0.300 [facility] ResourcesCreatine Zgtapf8653-68-24 20:23:00* Test Item Value Reference Range Interpretation Comments Creatine Kinase (test code = 2157-6) 60 29-168 [facility] [place] [facility] ResourcesCT ABDOMEN/PELVIS WOW [facility] [address] [address] Patient Name: ALBERT BUSTAMANTE MR #: [id number] : 1935 Age/Sex: 82/F Req #: [id number] Adm Physician: RADHA DELGADO MD Ordered by: RADHA DELGADO MD Report #: [id number] Location: MED/SURG2 Room/Bed: [facility] Procedure: [id number] CT/CT ABD OMEN/PELVIS WOW Exam Date: 02/21/18 [...] COPY TO: RADHA DELGADO MD ABDOMEN-1VIEW (KUB) [place] [address] Patient Name: ALBERT BUSTAMANTE MR #: [id number] : 1935 Age/Sex: 82/F Req #: [id number] Adm Physician: RADHA DELGADO MD Ordered by: MARCO GUERRERO MD Report #: [id number] Location: MED/SURG2 Room/Bed: [facility] Procedure: [id number] DX/ABDOME N-1VIEW (KUB) Exam Date: 02/20/18 Exam [...] TO: MARCO GUERRERO MD CT CHEST W [place] [address] Patient Name: ALBERT BUSTAMANTE MR #: [id number] : 1935 Age/Sex: 82/F Req #: [id number] Adm Physician: RADHA DELGADO MD Ordered by: RADHA DELGADO MD Report #: [id number] Location: MED/SURG2 Room/Bed: [facility] Procedure: [id number] CT/CT [facility]YLAN ST W Exam Date: 02/19/18 [...] TO: RADHA DELGADO MD CT ABDOMEN/PELVIS W [place] [address] Patient Name: ALBERT BUSTAMANTE MR #: [id number] : 1935 Age/Sex: 82/F Req #: [id number] Adm Physician: RADHA DELGADO MD Ordered by: MARCO GUERRERO MD Report #: [id number] Location: MED/SURG Room/Bed: 100 Procedure: [id number] CT/CT ABDO MEN/PELVIS W Exam Date: 02/16/18 [...] TO: MARCO GUERRERO MD CHEST 2 VIEWS [place] [address] Patient Name: ALBERT BUSTAMANTE MR #: [id number] : 1935 Age/Sex: 82/F Req #: [id number] Adm Physician: Ordered by: HANNAH GALEAS MD Report #: [id number] Location: ER Room/Bed: Procedure: [id number] DX/CHEST 2 VIEWS Exam Date: Exam Time: [...] MD ABDOMEN COMP INCL UPR or DECUB [place] [id number] Patient Name: ALBERT BUSTAMANTE MR #: [id number] : 1935 Age/Sex: 82/F Req #: [id number] Adm Physician: Ordered by: HANNAH GALEAS MD Report #: [id number] Location: ER Room/Bed: Procedure: [id number] DX/ABDOMEN COMP INCL UPR or DEC UB [...]
[2020-08-12] MEDS ORDERED: ONDANSETRON HCL 4 MG ORAL DISINTEGRATING TAB PO PRN (13:15)
--- NOTE | 2020-08-12 14:51 | Operative Report ---
DATE OF PROCEDURE: 08/12/2020 SURGEON: Cameron Florence MD PROCEDURE: Lexiscan nuclear stress test. INDICATION: Chest pain. TECHNIQUE: The patient was given 11 mCi of Myoview. Resting images were obtained in the horizontal long axis, vertical long axis, and short axis. The patient was then hooked up to the EKG machine. Lexiscan was infused over 15 seconds. Immediately after Lexiscan infusion, the patient was given 35 millicuries of Myoview. Stress images were obtained 30 minutes after completion of Lexiscan infusion. Stress images were obtained in the horizontal long axis, and vertical long axis, and short axis. RESULTS: 1. The resting EKG demonstrated normal sinus rhythm with nonspecific ST and T-wave changes. 2. There was some mild upsloping ST changes during Lexiscan infusion, but no symptoms. 3. There was normal perfusion to all segments of the myocardium in both stress and rest. 4. There was normal left ventricular size and function with an ejection fraction of 70%. CONCLUSION: Normal Lexiscan nuclear stress test with no evidence of ischemia. Cameron Florence MD [facility]/MODL /[id number] cc: Rock Santos MD
== END 2020-08-12 16:00 | disposition home or self-care (01) ==
LOC: ER 04:24 → ERHOLD 05:28 → MED/SURG 06:20
PROVIDERS: ADMIT Internal Medicine; ATTEND Internal Medicine
DX: R07.89 Other chest pain (principal); I25.10 Atherosclerotic heart disease of native coronary artery without angina pectoris; I10 Essential (primary) hypertension; D64.9 Anemia, unspecified; E78.5 Hyperlipidemia, unspecified; Z88.5 Allergy status to narcotic agent; Z95.5 Presence of coronary angioplasty implant and graft; Z11.59 Encounter for screening for other viral diseases
CPT/HCPCS: 36415 ×2; 71045; 78452; 80053; 80061; 82550; 82553; 83880; 84484; 85025; 85610; 85730; 93005; 93017; 93306; 99284; A9502; G0378 ×2; J2785; S0164; U0002

== ENCOUNTER → 2021-10-12 | Day surgery (SDC) | payer MEDICARE ==
[2021-10-11 10:02] LABS: BASOPHILS % 0.7 % (0.0-1.0); EOSINOPHILS # (AUTO) 0.1 (0.0-0.4); EOSINOPHILS % 1.3 % (0.0-6.0); HEMATOCRIT 39.3 % (34.2-44.1); HEMOGLOBIN 12.8 g/dL (12.0-16.0); LYMPHOCYTES # (AUTO) 1.6 (1.0-3.2); LYMPHOCYTES % 25.6 % (18.0-39.1); MEAN CORPUSCULAR HEMOGLOBIN 29.8 pg (28-32); MEAN CORPUSCULAR HGB CONC 32.6 g/dL (31-35); MEAN CORPUSCULAR VOLUME 91.4 fL (81-99); MONOCYTES # (AUTO) 0.5 (0.2-0.8); MONOCYTES % 8.6 % (4.4-11.3); NEUTROPHILS # (AUTO) 3.9 (2.1-6.9); NEUTROPHILS % 63.3 % (38.7-80.0); PLATELET COUNT 299 x10e3/uL (140-360); RED CELL DISTRIBUTION WIDTH 13.2 % (11.7-14.4)
[2021-10-11 14:29] LABS: ANION GAP 18.6 mmol/L (8-16); CALCIUM 10.1 mg/dL (8.4-10.2); CREATININE, SERUM 0.78 mg/dL (0.57-1.11); POTASSIUM 3.6 mmol/L (3.5-5.1)
[~2021-10-12] MED LIST changes: +BALANCED SALT SOLN (OPTH) 15 ML BTL IO ONE; +BUPIVACAINE HC 0.75% PF 10ML VIAL INJ ONE; +COMBIGAN EYE DRO5 ML OU; +CYCLOPENTOLATE HCL 2% OPTH SOLN 2 ML BTL OP ONE; +EPINEPHRINE HCL 1:1000 1ML 1 MG/ML AMP ONE; +FAMOTIDINE 20 MG/2 ML VIAL IV ONE; +FAMOTIDINE20 MG PO; +GATIFLOXACIN(OPTH) 5 ML LIQD ONE; +LIDOCAINE 2% /EPINEPHRINE 20 ML SDV INJ ONE; +LIDOCAINE HCL-PF 4% 40 MG/1 ML 5ML AMP ONE; +LUMIGAN2.5 M1 OU; +MIDAZOLAM HCL 2 MG/2 ML VIAL ONE; +ONDANSETRON HCL INJ 2MG/ML 2ML 2 MG/ML VIAL ONE; +OS-CAL 500+D T1 EACH PO; +PHENYLEPHRINE HCL 2 ML DROPS ONE; +POVIDONE IODINE 0.05% 0.05 % ML PO ONE; +POVIDONE IODINE 5% (OPTH) 30 ML BTL ONE; +PROPOFOL IV EMULSION 10 MG/ML 20 ML VIAL ONE; +TOBRAMYCIN/DEXAMETHASONE(OPTH) 3.5 GM TUBE ONE
[2021-10-12 10:42] VITALS: BP 136/65
== END | disposition home or self-care (01) ==
LOC: OR 07:23
PROVIDERS: ATTEND Ophthalmology
DX: H25.11 Age-related nuclear cataract, right eye (principal); R06.09 Other forms of dyspnea; I25.10 Atherosclerotic heart disease of native coronary artery without angina pectoris; I10 Essential (primary) hypertension; E78.5 Hyperlipidemia, unspecified; K21.9 Gastro-esophageal reflux disease without esophagitis; H54.62 Unqualified visual loss, left eye, normal vision right eye; Z88.6 Allergy status to analgesic agent; Z01.810 Encounter for preprocedural cardiovascular examination; Z01.812 Encounter for preprocedural laboratory examination; Z20.822 Contact with and (suspected) exposure to COVID-19; Z79.02 Long term (current) use of antithrombotics/antiplatelets; Z79.899 Other long term (current) drug therapy; Z95.5 Presence of coronary angioplasty implant and graft; Z85.038 Personal history of other malignant neoplasm of large intestine; Z86.2 Personal history of diseases of the blood and blood-forming organs and certain disorders involving the immune mechanism
CPT/HCPCS: 36415; 66984; 80048; 85025; 93005; J0171; J2001; J2250; J2405; J2704; U0002; V2632

== ENCOUNTER → 2021-12-28 | Day surgery (SDC) | payer MEDICARE ==
[2021-12-27 14:39] LABS: BASOPHILS # (AUTO) 0.1 (0.0-0.1); BASOPHILS % 0.9 % (0.0-1.0); EOSINOPHILS # (AUTO) 0.1 (0.0-0.4); EOSINOPHILS % 1.8 % (0.0-6.0); HEMATOCRIT 38.1 % (34.2-44.1); HEMOGLOBIN 12.2 g/dL (12.0-16.0); LYMPHOCYTES # (AUTO) 1.8 (1.0-3.2); LYMPHOCYTES % 32.4 % (18.0-39.1); MEAN CORPUSCULAR HEMOGLOBIN 29.8 pg (28-32); MEAN CORPUSCULAR VOLUME 93.2 fL (81-99); MONOCYTES # (AUTO) 0.5 (0.2-0.8); NEUTROPHILS # (AUTO) 3.2 (2.1-6.9); NEUTROPHILS % 56.4 % (38.7-80.0); PLATELET COUNT 269 x10e3/uL (140-360); RED BLOOD COUNT 4.09 x10e6/uL (3.6-5.1); RED CELL DISTRIBUTION WIDTH 13.1 % (11.7-14.4)
[~2021-12-28] MED LIST changes: -BALANCED SALT SOLN (OPTH) 15 ML BTL IO ONE; -BUPIVACAINE HC 0.75% PF 10ML VIAL INJ ONE; -CYCLOPENTOLATE HCL 2% OPTH SOLN 2 ML BTL OP ONE; -EPINEPHRINE HCL 1:1000 1ML 1 MG/ML AMP ONE; -FAMOTIDINE 20 MG/2 ML VIAL IV ONE; +FENTANYL CITRATE/PF 100MCG/2 ML INJ ONE; -GATIFLOXACIN(OPTH) 5 ML LIQD ONE; -LIDOCAINE 2% /EPINEPHRINE 20 ML SDV INJ ONE; +LIDOCAINE HCL 2% LOCAL INJ 5 ML SDV VIAL INJ ONE; -LIDOCAINE HCL-PF 4% 40 MG/1 ML 5ML AMP ONE; -MIDAZOLAM HCL 2 MG/2 ML VIAL ONE; -ONDANSETRON HCL INJ 2MG/ML 2ML 2 MG/ML VIAL ONE; -PHENYLEPHRINE HCL 2 ML DROPS ONE; -POVIDONE IODINE 0.05% 0.05 % ML PO ONE; -POVIDONE IODINE 5% (OPTH) 30 ML BTL ONE; -TOBRAMYCIN/DEXAMETHASONE(OPTH) 3.5 GM TUBE ONE
[2021-12-28 08:10] VITALS: BP 108/54
== END | disposition home or self-care (01) ==
LOC: OR 07:01
PROVIDERS: ATTEND Internal Medicine Gastroenterology
DX: K22.2 Esophageal obstruction (principal); K29.50 Unspecified chronic gastritis without bleeding; K21.9 Gastro-esophageal reflux disease without esophagitis; K28.9 Gastrojejunal ulcer, unspecified as acute or chronic, without hemorrhage or perforation; K44.9 Diaphragmatic hernia without obstruction or gangrene; Z85.038 Personal history of other malignant neoplasm of large intestine; I10 Essential (primary) hypertension; R63.6 Underweight; H54.62 Unqualified visual loss, left eye, normal vision right eye; I25.10 Atherosclerotic heart disease of native coronary artery without angina pectoris; N39.0 Urinary tract infection, site not specified; Z88.6 Allergy status to analgesic agent; Z91.041 Radiographic dye allergy status; Z01.812 Encounter for preprocedural laboratory examination; Z20.822 Contact with and (suspected) exposure to COVID-19; Z79.02 Long term (current) use of antithrombotics/antiplatelets; Z79.899 Other long term (current) drug therapy; Z68.1 Body mass index [BMI] 19.9 or less, adult; Z95.5 Presence of coronary angioplasty implant and graft
CPT/HCPCS: 36415; 43233; 43239; 85025; J2001; J2704; J3010; U0002

== ENCOUNTER → 2022-04-19 | Outpatient (CLI) | payer MEDICARE ==
[~2022-04-19] MED LIST changes: -FENTANYL CITRATE/PF 100MCG/2 ML INJ ONE; -LIDOCAINE HCL 2% LOCAL INJ 5 ML SDV VIAL INJ ONE; -PROPOFOL IV EMULSION 10 MG/ML 20 ML VIAL ONE
== END ==
LOC: RAD 13:34
PROVIDERS: ATTEND Internal Medicine
DX: J18.9 Pneumonia, unspecified organism (principal)
CPT/HCPCS: 71046